=== PATIENT | male | born 1980 | race Two or more races ===

== ENCOUNTER → 2020-06-13 09:11 | Outpatient (BNVA) | payer OTHER, SELFPAY | PROVIDERS: PCP Nurse Practitioner Family; Referring Provider Nurse Practitioner Family; Visit Provider Internal Medicine Gastroenterology | DX: K76.0 Fatty (change of) liver, not elsewhere classified (principal); E66.01 Morbid (severe) obesity due to excess calories | CPT/HCPCS: 99213 ==

== ENCOUNTER 2020-06-18 09:08 | Outpatient (REF) | payer OTHER, SELFPAY ==
--- NOTE | 2020-06-18 09:25 | US_ITS ---
EXAMINATION: US COMPLETE ABDOMEN WITH LIVER ELASTOGRAPHY CLINICAL INFORMATION: Hepatic steatosis. COMPARISON: Abdominal ultrasound 09/21/2018, CT abdomen and pelvis 03/09/2017. TECHNIQUE: Real-time imaging of the abdominal viscera. Noninvasive ultrasound liver fibrosis assessment is performed using Jannie ElastPQ point quantification shear wave elastography (pSWE) with a 5 MHz transducer. Multiple elastography samples are obtained. FINDINGS: PANCREAS: The pancreas is normal in size and contour and echogenicity. There is no pancreatic ductal distention or retroperitoneal effusion. ABDOMINAL AORTA: The proximal, middle, and distal aortic segments are normal in caliber. INFERIOR VENA CAVA: Visualized portions are normal. LIVER: The liver is borderline enlarged. The liver surface is smooth. There is increased hepatic parenchymal echogenicity consistent with hepatic steatosis. Some minor focal sparing again noted adjacent to gallbladder similar to previous exam. There is no focal hepatic parenchymal lesion or intrahepatic ductal dilatation. The right lobe measures 19.6 cm in length. The left lobe measures 12.3 cm in length. Doppler shows portal flow towards the liver. Shear wave elastography provides a median stiffness of 1.16 m/s (reference: normal median stiffness is 0.81 - 1.22 m/s). The IQR/median stiffness to assess sampling precision is 0.24 (reference: optimal IQR/median stiffness is under 0.3). GALLBLADDER: Normal. The gallbladder is physiologically distended without evidence of stones, sludge, polyps, wall thickening or pericholecystic fluid. COMMON BILE DUCT: Normal in caliber measuring 0.4 cm in diameter. RIGHT KIDNEY: Normal. No hydronephrosis. No renal calculi. The kidney measures 11.8 cm in maximum dimension. There is a small cyst interpolar region measuring under 1 cm. LEFT KIDNEY: Normal. No hydronephrosis. No renal calculi. The kidney measures 11.3 cm in maximum dimension. There is a small cyst lower pole measuring under 1 cm. SPLEEN: Normal. The spleen measures 9.8 cm in maximum dimension. FREE FLUID: None. IMPRESSION: 1. Liver borderline enlarged 19.6 cm with smooth contour and increased echogenicity consistent with hepatic steatosis. No focal hepatic parenchymal lesion. 2. Elastography: Liver elastography measurements are within normal (METAVIR Stage F0). 3. No cholelithiasis or ductal dilatation. 4. Pancreas unremarkable.
== END 2020-06-18 09:09 | disposition home or self-care (01) ==
LOC: HO.US 09:08
PROVIDERS: Visit Provider Internal Medicine Gastroenterology
DX: K76.0 Fatty (change of) liver, not elsewhere classified (principal)
CPT/HCPCS: 76705; 76981

== ENCOUNTER → 2020-09-03 14:05 | Outpatient (BNVA) | payer OTHER, SELFPAY | PROVIDERS: PCP Nurse Practitioner Family; Visit Provider Internal Medicine Gastroenterology | DX: Z76.89 Persons encountering health services in other specified circumstances (principal) ==

== ENCOUNTER 2021-01-10 09:29 | Outpatient (REF) | payer OTHER, SELFPAY ==
[2021-01-10 11:26] LABS: MANUAL DIFF FLAG NO
[2021-01-10 11:37] LABS: Basophils Percent Auto 0.5 % (0-2); Eosinophils Absolute Auto 0.2 X10*3/uL (0.0-0.4); Eosinophils Percent Auto 2.8 % (0-4); Hematocrit 43.8 % (42-52); Hemoglobin 14.8 g/dl (14.0-18.0); Imm Gran Abs Auto 0.01 X10*3/uL (0.00-0.03); Imm Gran Pct Auto 0.2 % (0.0-0.4); Lymphocytes Absolute Auto 2.4 X10*3/uL (1.2-4.9); Lymphocytes Percent Auto 41.5 % (20-40); Mean Corpuscular HGB Conc 33.8 g/dl (31.0-36.0); Mean Corpuscular Hemoglobin 30.7 pg (27.0-33.0); Mean Corpuscular Volume 90.9 fL (80-98); Mean Platelet Volume 10.5 fL (9.4-12.4); Monocytes Absolute Auto 0.5 X10*3/uL (0.1-1.2); Monocytes Percent Auto 9.2 % (2-11); Neutrophils Absolute Auto 2.6 X10*3/uL (2.0-8.3); Neutrophils Percent Auto 45.8 % (45-73); Platelet Count 231 X10*3/uL (160-400); Red Blood Count 4.82 X10*6/uL (4.60-5.80); Red Cell Distribution Width 12.7 % (11.0-16.0); White Blood Count 5.7 X10*3/uL (4.8-10.8)
[2021-01-10 11:44] LABS: Prothrombin Time 12.1 SEC (10.8-13.0)
[2021-01-10 11:51] LABS: Alanine Aminotransferase 48 U/L (0-40); Albumin Level 4.5 g/dL (3.5-5.0); Alkaline Phosphatase 78 U/L (39-117); Anion Gap 10 (12-20); Aspartate Amino Transferase 34 U/L (5-37); Bilirubin Total 0.7 mg/dL (0.0-1.0); Blood Urea Nitrogen 14 mg/dL (9-16); Calcium 9.5 mg/dL (8.4-10.2); Carbon Dioxide 28 mmol/L (22-29); Chloride 104 mmol/L (96-108); Cholesterol 195 mg/dL; Estimated Average Glucose 114 mg/dL; Estimated Glomerular Filt Rate > 60; Gamma Glutamyl Transpeptidase 29 U/L (11-51); Glucose Fasting 90 mg/dL (60-99); HDL Cholesterol 37 mg/dL; Hemoglobin A1c % 5.6 %; LDL Cholesterol Calculated 127 mg/dl; Potassium 4.3 mmol/L (3.3-5.1); Sodium 138 mmol/L (135-145); Total Protein 7.3 g/dL (6.5-8.0); Triglycerides 158 mg/dL
[2021-01-10 12:22] LABS: Ferritin 196 ng/mL (20-250); TSH reflex Free T4 1.13 uIU/mL (0.32-4.0)
[2021-01-12 13:42] LABS: Transglutaminase IgA 1 U/mL
== END 2021-01-10 09:30 | disposition home or self-care (01) ==
LOC: HO.HMGCLDS 09:29
PROVIDERS: PCP Nurse Practitioner Family; Visit Provider Internal Medicine Gastroenterology
DX: K76.0 Fatty (change of) liver, not elsewhere classified (principal)
CPT/HCPCS: 36415; 80053; 80061; 82306; 82728; 82977; 83036; 83516; 84443; 85025; 85610

== ENCOUNTER 2021-06-03 10:39 | Outpatient (REF) | payer OTHER, SELFPAY ==
[2021-06-03 11:58] LABS: Appearance Urine CLEAR; Color Urine YELLOW; Glucose Urine UA NEG (NEG); Leukocyte Esterase Urine NEG (NEG); Nitrite Urine NEG (NEG); Specific Gravity - Urine 1.025 (1.005-1.025); UACC Culture Trigger NO; Urine Blood 1+ (NEG); Urine Ketones NEG (NEG); Urine Protein NEG (NEG-TRACE)
[2021-06-03 12:04] LABS: Anion Gap 11 (12-20); Blood Urea Nitrogen 12 mg/dL (9-16); Calcium 9.4 mg/dL (8.4-10.2); Carbon Dioxide 27 mmol/L (22-29); Chloride 104 mmol/L (96-108); Estimated Glomerular Filt Rate > 60; Phosphorus 3.7 mg/dL (2.7-4.5); Potassium 4.8 mmol/L (3.3-5.1); Sodium 137 mmol/L (135-145)
[2021-06-03 12:06] LABS: Mucus Urine TRACE /LPF; Renal Epithelial Cells Urine TRACE /LPF; Squamous Epithelial Cell Urine TRACE /LPF; WBC Urine 0 /HPF (0-4)
[2021-06-03 12:58] LABS: Creatinine Urine 166.73 mg/dL; Microalbum/Creatinine Ratio Ur 10.7 ug/mg cr
[2021-06-03 13:24] LABS: Renal w Reflex Lab Use Only Order verified
== END 2021-06-03 10:40 | disposition home or self-care (01) ==
LOC: HO.LAB 10:39
PROVIDERS: PCP Nurse Practitioner Family; Visit Provider Internal Medicine Nephrology
DX: R31.9 Hematuria, unspecified (principal); R80.9 Proteinuria, unspecified
CPT/HCPCS: 36415; 80051; 81001; 82043; 82310; 82565; 84100; 84520

== ENCOUNTER → 2021-06-11 11:44 | Outpatient (BNVA) | payer OTHER, SELFPAY | PROVIDERS: PCP Nurse Practitioner Family; Referring Provider Nurse Practitioner Family; Visit Provider Physician Assistant ==

== ENCOUNTER 2021-10-10 08:55 | Outpatient (REF) | payer OTHER, SELFPAY ==
--- NOTE | ~2021-10-10 | US_ITS ---
EXAMINATION: US ABDOMEN COMPLETE CLINICAL INFORMATION: Fatty change of liver, not elsewhere classified. COMPARISON: Ultrasound abdomen complete 06/18/2020 and 09/21/2018. CT abdomen and pelvis 03/09/2017. TECHNIQUE: Real-time imaging of the abdominal viscera. FINDINGS: PANCREAS: Normal ABDOMINAL AORTA: The proximal, mid, and distal segments are normal in caliber. INFERIOR VENA CAVA: Visualized portions are normal. LIVER: Liver echotexture is increased. There is a hypoechoic area in the periportal region and adjacent to the gallbladder, characteristic location of focal fatty sparing. Liver is enlarged slightly enlarged. The liver contour is normal. No focal hepatic lesion. There is no intrahepatic biliary duct dilatation seen. GALLBLADDER: Normal. The gallbladder is physiologically distended without evidence of stones, sludge, polyps, wall thickening or pericholecystic fluid. COMMON BILE DUCT: Normal in caliber measuring 0.3 cm in diameter. RIGHT KIDNEY: Normal No hydronephrosis or renal calculi. The kidney measures 13.0 cm in maximum dimension. LEFT KIDNEY: There is a 7 x 9 x 6 mm cyst exophytic to the lower pole. No hydronephrosis or renal calculi. The kidney measures 11.0 cm in maximum dimension. SPLEEN: Normal. The spleen measures 10.0 cm in maximum dimension. FREE FLUID: None. US/US abdomen complete IMPRESSION: Enlarged fatty liver. Small left renal cyst.
== END 2021-10-10 08:56 | disposition home or self-care (01) ==
LOC: HO.US 08:55
PROVIDERS: PCP Nurse Practitioner Family; Visit Provider Physician Assistant
DX: K76.0 Fatty (change of) liver, not elsewhere classified (principal)
CPT/HCPCS: 76700

== ENCOUNTER → 2021-10-22 08:58 | Outpatient (BNVA) | payer OTHER, SELFPAY | PROVIDERS: PCP Nurse Practitioner Family; Visit Provider Physician Assistant | DX: K76.0 Fatty (change of) liver, not elsewhere classified (principal); E66.01 Morbid (severe) obesity due to excess calories; Z68.38 Body mass index [BMI] 38.0-38.9, adult | CPT/HCPCS: 99212 ==

== ENCOUNTER 2021-10-22 09:46 | Outpatient (REF) | payer OTHER, SELFPAY ==
[2021-10-22 11:37] LABS: MANUAL DIFF FLAG NO
[2021-10-22 11:42] LABS: Basophils Percent Auto 0.7 % (0-2); Eosinophils Absolute Auto 0.1 X10*3/uL (0.0-0.4); Hematocrit 45.1 % (42.0-52.0); Hemoglobin 15.1 g/dl (14.0-18.0); Imm Gran Abs Auto 0.01 X10*3/uL (0.00-0.03); Imm Gran Pct Auto 0.2 % (0.0-0.4); Lymphocytes Absolute Auto 2.2 X10*3/uL (1.2-4.9); Lymphocytes Percent Auto 40.1 % (20-40); Mean Corpuscular HGB Conc 33.5 g/dl (31.0-36.0); Mean Corpuscular Hemoglobin 30.7 pg (27.0-33.0); Mean Corpuscular Volume 91.7 fL (80.0-98.0); Monocytes Absolute Auto 0.5 X10*3/uL (0.1-1.2); Monocytes Percent Auto 8.5 % (2-11); Neutrophils Absolute Auto 2.7 x10*3/uL (2.0-8.3); Neutrophils Percent Auto 48.5 % (45-73); Platelet Count 224 X10*3/uL (160-400); Red Blood Count 4.92 X10*6/uL (4.60-5.80); Red Cell Distribution Width 13.1 % (11.0-16.0); White Blood Count 5.5 X10*3/uL (4.8-10.8)
[2021-10-22 12:15] LABS: Alanine Aminotransferase 41 U/L (0-40); Albumin Level 4.3 g/dL (3.5-5.0); Alkaline Phosphatase 77 U/L (39-117); Anion Gap 12 (12-20); Aspartate Amino Transferase 29 U/L (5-37); Bilirubin Total 0.5 mg/dL (0.0-1.0); Blood Urea Nitrogen 17 mg/dL (9-16); Calcium 9.3 mg/dL (8.4-10.2); Carbon Dioxide 26 mmol/L (22-29); Chloride 104 mmol/L (96-108); Cholesterol 201 mg/dL; Estimated Glomerular Filt Rate > 60; Glucose Random 96 mg/dL (60-115); HDL Cholesterol 38 mg/dL; LDL Cholesterol Calculated 118 mg/dl; Potassium 4.6 mmol/L (3.3-5.1); Sodium 137 mmol/L (135-145); Total Protein 7.4 g/dL (6.5-8.0); Triglycerides 229 mg/dL
[2021-10-26 14:19] LABS: FIB-ALT 39 U/L (9-46); FIB-Alpha-2-Macroglobulin 148 mg/dL (106-279); FIB-Apolipoprotein A1 132 mg/dL (94-176); FIB-GGT 24 U/L (3-95); FIB-Haptoglobin 15 mg/dL (43-212); FIB-Total Bilirubin 0.4 mg/dL (0.2-1.2); Liver Fibrosis Score 0.28; Liver Fibrosis Stage F1; Nec Inflam Act Grade A0-A1; Nec Inflam Act Score 0.21
== END 2021-10-22 09:47 | disposition home or self-care (01) ==
LOC: HO.WFDLDS 09:46
PROVIDERS: Visit Provider Physician Assistant
DX: K76.0 Fatty (change of) liver, not elsewhere classified (principal); E66.01 Morbid (severe) obesity due to excess calories
CPT/HCPCS: 36415; 80053; 80061; 81596; 85025

== ENCOUNTER 2022-07-01 09:09 | Outpatient (REF) | payer OTHER, SELFPAY ==
[2022-07-01 10:42] LABS: Appearance Urine Clear; Color Urine Yellow; Glucose Urine UA Negative (Negative); Leukocyte Esterase Urine Negative (Negative); Nitrite Urine Negative (Negative); PH 5.5 (5.0-9.0); Specific Gravity - Urine 1.015 (1.005-1.025); UMIC TRIGGER UA YES; Urine Blood Small (1+) (Negative); Urine Ketones Negative (Negative); Urine Protein Negative (Neg-Trace)
[2022-07-01 10:43] LABS: Anion Gap 14 (12-20); Blood Urea Nitrogen 13 mg/dL (9-16); Calcium 9.2 mg/dL (8.4-10.2); Carbon Dioxide 24 mmol/L (22-29); Chloride 105 mmol/L (96-108); Estimated Glomerular Filt Rate > 60; Potassium 4.3 mmol/L (3.3-5.1); Sodium 139 mmol/L (135-145)
[2022-07-01 10:53] LABS: Bacteria Urine None Seen (None Seen); Hyaline Casts Urine 0-2 /LPF (0-2); RBC Urine 0-2 /HPF (0-2); Squamous Epithelial Cell Urine 0-2 /HPF (0-2); WBC Urine 0-5 /HPF (0-5)
[2022-07-01 11:05] LABS: Creatinine Urine 128.78 mg/dL; Total Protein Urine Random < 7 mg/dL (<12)
== END 2022-07-01 09:10 | disposition home or self-care (01) ==
LOC: HO.LAB 09:09
PROVIDERS: PCP Nurse Practitioner Family; Visit Provider Internal Medicine Nephrology
DX: R80.9 Proteinuria, unspecified (principal); R31.9 Hematuria, unspecified
CPT/HCPCS: 36415; 80051; 81001; 82310; 82565; 84156; 84520

== ENCOUNTER 2023-01-22 11:05 | Emergency (ER) | payer OTHER, SELFPAY ==
--- NOTE | ~2023-01-22 | US_ITS ---
EXAMINATION: US SCROTUM CLINICAL INFORMATION: Left testicular pain. COMPARISON: None available. TECHNIQUE: A sonogram of the scrotum was performed assessing hardy-scale appearance and color Doppler flow. Spectral Doppler analysis of the arterial and venous flow were performed in the testes bilaterally. FINDINGS: RIGHT: Right testicle measures 4.3 x 2.4 x 3.2 cm, volume 17.2 mL. No focal testicular parenchymal lesions are visualized. Spectral Doppler analysis of the arterial and venous flow is normal in the right testis. Incidental finding of right appendix testes. Right epididymal head is normal in size.. Small right hydrocele is noted. No varicocele is seen. Right epididymal Doppler flow is normal LEFT: Left testicle measures 4.0 x 2.7 x 3.1 cm, volume 17.7 mL. No focal testicular parenchymal lesions are visualized. Spectral Doppler analysis of the arterial and venous flow is normal in the left testis. Left epididymal head is enlarged in size. There is a small hydrocele. A prominent vessels consistent with varicocele. Left epididymal Doppler flow is increased. US/US scrotum IMPRESSION: 1. Suspect left epididymitis. 2. Bilateral small hydroceles. 3. Left varicocele.
--- NOTE | ~2023-01-22 | US_ITS ---
EXAMINATION: US SCROTUM CLINICAL INFORMATION: Left testicular pain. COMPARISON: None available. TECHNIQUE: A sonogram of the scrotum was performed assessing hardy-scale appearance and color Doppler flow. Spectral Doppler analysis of the arterial and venous flow were performed in the testes bilaterally. FINDINGS: RIGHT: Right testicle measures 4.3 x 2.4 x 3.2 cm, volume 17.2 mL. No focal testicular parenchymal lesions are visualized. Spectral Doppler analysis of the arterial and venous flow is normal in the right testis. Incidental finding of right appendix testes. Right epididymal head is normal in size.. Small right hydrocele is noted. No varicocele is seen. Right epididymal Doppler flow is normal LEFT: Left testicle measures 4.0 x 2.7 x 3.1 cm, volume 17.7 mL. No focal testicular parenchymal lesions are visualized. Spectral Doppler analysis of the arterial and venous flow is normal in the left testis. Left epididymal head is enlarged in size. There is a small hydrocele. A prominent vessels consistent with varicocele. Left epididymal Doppler flow is increased. US/US scrotum doppler IMPRESSION: 1. Suspect left epididymitis. 2. Bilateral small hydroceles. 3. Left varicocele.
[2023-01-22 11:12] VITALS: BP 135/87; PULSE 66; RESP 16; TEMP 36.6; O2SAT 97; BMI 39.5
--- NOTE | 2023-01-22 11:13 | ED.MALEGU ---
HPI - Male Genitourinary General Chief complaint: Urogenital-Male Stated complaint: Urinating blood Time Seen by Provider: 01/22/23 12:34 Source: patient Mode of arrival: ambulatory Limitations: no limitations History of Present Illness HPI Narrative: 42-year-old male presents with hematospermia. Symptoms started over the past 24 hours. Yesterday was judi blood. He also has some left-sided testicular pain. He has had this in the past. He does follow-up with the manager front office regarding hematuria microscopically. The pain that he has is [id number]. Does not radiate. Not associated with nausea vomiting. Denies any urinary frequency, dysuria, hematuria, penile discharge. There is no clear relieving or exacerbating features. Related Data Previous Rx's Medication Instructions Recorded cholecalciferol (vitamin D3) 1,250 50,000 unit PO QWEEK 90 days #12 01/22/21 mcg (50,000 unit) capsule caps sulfamethoxazole 800 1 tab PO BID #20 tabs 01/22/23 mg-trimethoprim 160 mg tablet (Bactrim DS) Allergies Allergy/AdvReac Type Severity Reaction Status Date / Time No Known Allergies Allergy Verified 10/22/21 09:00 [No Known Allergies*] [facility] Past Medical History Medical History Family history of polyps in the colon Hepatic steatosis Microhematuria Morbid obesity due to excess calories Surgical History H/O colonoscopy Family History Family History Father History of colonic polyps Mother History of nephrectomy Maternal Grandmother Hypertension Diabetes Social History Social History Household Members: Significant Other and Children Housing: House Alcohol intake: never Smoked in Last 30 Days: No Use of substances other than those prescribed or required for medical reasons: No Advance Directives: No Advance Directives Information Provided: No service: No Current occupational status: unemployed 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 Physical Exam Vital Signs: Vital Signs: Last Vital Signs Temp 97.7 F 01/22/23 12:11 Pulse 74 01/22/23 12:11 Resp 16 01/22/23 12:11 BP 117/81 05/25/23 12:11 Pulse Ox 95 01/22/23 12:11 O2 Del Method Room Air 01/22/23 12:11 BMI result Body Mass Index 39.5 GEN: Well developed, no acute distress, alert, oriented HEENT: Normocephalic, atraumatic, normal external ears, nose appears normal Eyes: Normal to appearance Neck: Supple, no lymphadenopathy Respiratory: Talks in complete sentences, no respiratory distress Extremities: No clubbing cyanosis or edema Neurologic: No focal neurologic deficits, cranial nerves 2-12 intact, gait normal Skin: No rash : Likely varicocele, tenderness over the left epididymis, normal cremasteric reflexes, no additional palpable masses. Course Course Course Narrative: This is a rapid medical exam. Deferred additional HPI, ROS, PE to primary provider. 42 yo male with history of microscopic hematuria (followed by renal) here with blood in urine, blood in semen, left testicular pain (intermittent) since Thursday. Unable to visualize in triage. Will check UA, CT NG, testicular US. VSS Reevaluation(s) Reevaluation #1: The workup is complete. Ultrasound identified a varicocele and epididymitis on the left side. There is no evidence of UTI. There was hematuria. At this point, I believe a referral to Urology and treatment for acute epididymitis. He was negative for GC and chlamydia. There does not appear to be a necessity to treat for an STD. Time: 14:05 Medical Decision Making Medical Decision Making [facility] Narrative: 42-year-old male presents with hematospermia. Symptoms have been intermittent issue, however, worse today than previous. Examination did reveal slight asymmetry which could be consistent with a varicocele and epididymal prominence and tenderness. There is no other abnormality of the external genitalia. Abdomen is soft nontender. Patient will need an ultrasound to rule out torsion, mass, etc.. Patient will need urinalysis, GC and chlamydia. Differential Diagnosis Differential Diagnoses: The differential diagnosis associated with the presentation includes (Epididymitis, orchitis, medicine for Denise, trauma, hematuria, cystitis) Lab Data [facility] Lab Attestation statement: I reviewed the patient's lab results. Labs: Lab Results 01/22/23 01/22/23 Range/Units 11:23 11:23 Urine Color Yellow Urine Appearance Clear Urine pH 6.0 (5.0-9.0) Ur Specific [place] 1.020 (1.005-1.025) Urine Protein Negative (Neg-Trace) mg/dL Urine Glucose (UA) Negative (Negative) mg/dL Urine Ketones Negative (Negative) mg/dL Urine Blood Moderate (2+) H (Negative) Urine Nitrite Negative (Negative) Ur Leukocyte Esterase Negative (Negative) Urine RBC 11-20 H (0-2) /HPF Urine WBC 0-5 (0-5) /HPF Ur Squamous Epith Cells 0-2 (0-2) /HPF Urine Bacteria None Seen (None Seen) Hyaline Casts 0-2 (0-2) /LPF Chlam trachomat DNA PCR NOT DETECTED (Not Detect.) N.gonorrhoeae DNA (PCR) NOT DETECTED (Not Detect.) Independent Interpretation I performed an independent interpretation of an: Ultrasound Interpretation: US/US scrotum doppler IMPRESSION: 1.? Suspect left epididymitis. 2.? Bilateral small hydroceles. 3.? Left varicocele. ? Dictated By: Eyad Biggs MD Signed By: <Electronically signed by Eyad Biggs MD in OV> 01/22/23 1221 Tests considered The following testing was considered but not selected: Renal ultrasound Prescription Management I considered prescription management with: Pain Medication and Antibiotic Discharge Plan Discharge Clinical Impression: Epididymitis, Varicocele, Hematospermia Patient Disposition: Home, Self-Care Instructions: Epididymitis (ED), Varicocele (ED) Prescriptions: New sulfamethoxazole-trimethoprim [Bactrim DS] 800-160 mg tablet 1 tab PO BID Qty: 20 0RF No Action cholecalciferol (vitamin D3) 1,250 mcg (50,000 unit) capsule 50,000 unit PO QWEEK 90 Days Qty: 12 0RF Rx Instructions: Y Referrals: Ramon Turner MD [Physician] - 10 days
[2023-01-22 11:33] LABS: Appearance Urine Clear; Color Urine Yellow; Glucose Urine UA Negative (Negative); Leukocyte Esterase Urine Negative (Negative); Nitrite Urine Negative (Negative); UMIC TRIGGER UACC YES; Urine Blood Moderate (2+) (Negative); Urine Ketones Negative (Negative); Urine Protein Negative (Neg-Trace)
[2023-01-22 11:35] LABS: Bacteria Urine None Seen (None Seen); Hyaline Casts Urine 0-2 /LPF (0-2); Squamous Epithelial Cell Urine 0-2 /HPF (0-2); WBC Urine 0-5 /HPF (0-5)
[2023-01-22 12:11] VITALS: BP 117/81; PULSE 74; RESP 16; TEMP 36.5; O2SAT 95
--- NOTE | 2023-01-22 12:19 | PC.NURSE ---
pt a&ox4, vss, presents to ED for intermittent left testicle discomfort /swelling/redness since Thursday, reports discomfort radiating to left groin, hx of kidney problems with blood in urine, followed by [facility]. denies any trauma to the area/new sexual partners. 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 pt pending u/s results and ED provider.
[2023-01-22 13:17] LABS: CT PCR NOT DETECTED (Not Detect.); NG PCR NOT DETECTED (Not Detect.)
== END 2023-01-22 14:23 | disposition home or self-care (01) ==
PROVIDERS: Nurse Practitioner Family; Emergency Provider Emergency Medicine; PCP Nurse Practitioner Family
DX: R31.9 Hematuria, unspecified (principal); N45.1 Epididymitis; I86.1 Scrotal varices; R36.1 Hematospermia; N50.812 Left testicular pain; N50.811 Right testicular pain; Z79.899 Other long term (current) drug therapy
CPT/HCPCS: 0353U; 76870; 81001; 93975; 99284

== ENCOUNTER → 2023-02-24 10:04 | Outpatient (BNVA) | payer OTHER, SELFPAY | PROVIDERS: PCP Nurse Practitioner Family; Visit Provider Nurse Practitioner Family | DX: R31.29 Other microscopic hematuria (principal); N45.1 Epididymitis; R36.1 Hematospermia | CPT/HCPCS: 99202 ==

== ENCOUNTER 2023-03-27 15:49 | Outpatient (REF) | payer OTHER, SELFPAY ==
[2023-03-27 19:12] LABS: Urine Cytology See Pathology rpt
== END 2023-03-27 15:50 | disposition home or self-care (01) ==
LOC: HO.LNP 15:49
PROVIDERS: PCP Nurse Practitioner Family; Visit Provider Nurse Practitioner Family
DX: R31.29 Other microscopic hematuria (principal); N28.1 Cyst of kidney, acquired
CPT/HCPCS: 88112; 99212

== ENCOUNTER 2023-03-27 15:49 | Outpatient (AMB) | payer OTHER, SELFPAY ==
--- NOTE | 2023-03-27 15:49 | A.OFFVIS_ITS ---
Intake Intake Visit Reasons: UTI- follow up Intake Note: Patient presents for follow up L. Varicocele/bi hydrocele/epididymitis Urology Medications: previously treated with doxycycline/none Blood Thinner: none Finance Director Required: No Accompanied by: Self / Same As Patient Allergies No Known Allergies [No Known Allergies*] Allergy (Verified 04/01/23 06:27) Medication List - Last Reconciled 04/01/23 by SATISH Canseco No Known Home Meds HPI HPI Comments History of Present Illness Details Vladislav is a very pleasant 42-year-old male patient of Dr. Kasper. He presents to the office today for follow-up. Of note, patient was seen approximately 1 month ago as a new patient for epididymitis and hematospermia at which time he was treated with 2 weeks of doxycycline. In discussion with the patient today he reports to be doing and feeling much better and has since completed antibiotic therapy. In office urinalysis results reviewed with the patient today. Discussed at length potential causes for microscopic hematuria as well as further microscopic hematuria workup versus surveillance monitoring. Discussed further microscopic hematuria workup with in office cystoscopy, imaging, and cytology. Patient denies any known chemical exposure or smoking history. Patient discusses previously following up with Nephrology for longstanding history of renal cyst however has not followed up since [facility]. Discussed at length importance of following up as recommended and suggested. He otherwise denies any urinary issues or concerns at this time. When asked he denies urinary urgency, urinary frequency, incontinence, nocturia, hematuria, dysuria, foul smelling urine, changes to urinary stream, flank pain, fever, and or chills. He is happy with his current voiding parameters. 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 Review of Systems Const All systems reviewed & are unremarkable except as noted in HPI and below Reports no additional complaints Eyes Reports no additional complaints ENT Reports no additional complaints Card Reports no additional complaints Resp Reports no additional complaints GI Reports no additional complaints Reports as per HPI Musc Reports no additional complaints Neuro Reports no additional complaints Psych Reports no additional complaints Endo Reports no additional complaints Roger/Lymph Reports no additional complaints Aller/Immun Reports no additional complaints Physical Exam Const General: cooperative, healthy appearing, comfortable, no acute distress, well developed, alert and awake Orientation/consciousness: patient oriented x3 Limitations: no limitations HEENT Head: Yes normal to inspection, Yes normocephalic and Yes atraumatic Ears: hearing grossly normal bilaterally Eyes General: appearance normal, both eyes and all related structures Neck Neck: Yes normal visual inspection and Yes trachea midline Chest Chest palpation & inspection: normal inspection of the chest Resp Effort & Inspection: normal respiratory effort and able to speak in complete sentences Cardio Rate: regular rate GI Inspection: Yes normal to inspection General: Yes no CVA tenderness Male General Exam: Yes normal external exam Penis: normal penis Meatus: meatus normal Scrotum: scrotum normal and Varicocele present Testes: Testes normal Back/Spine/Pelvis Back: no CVA tenderness Skin General skin exam: no rashes or lesions noted Neuro General: patient oriented x3 Extrem General: Yes normal to inspection Psych Appearance: grossly normal and well kempt Mental Status: mental status grossly normal Speech and movement: Normal speech and movement present and Clear speech present Affect: normal affect Attitude: cooperative Thought process: Normal thought process present Thought content: Normal thought content present Insight: Good insight present (Psych) Judgement: Good judgement present (Psych) Results AMB Urinalysis, Automated UA Leukoctes 0 Larry/uL Last Edit by [employer] on 03/27/23 16:16 UA Nitrite Last Edit by [employer] on 03/27/23 16:16 UA Urobilinogen 0.2 mg/dL Last Edit by [employer] Nolipreet[employer] on 03/27/23 16:16 UA Protein 15 mg/dL Last Edit by [employer] on 03/27/23 16:16 UA pH 6.0 Last Edit by [employer] Nolipreet[employer] on 03/27/23 16:16 UA Blood 200 Arturo/uL Last Edit by Gely Dillonpreeti on 03/27/23 16:16 UA Specific [place] 1.030 Last Edit by Gely Wilmapreeti on 03/27/23 16:16 UA Ketone Last Edit by Reymundosamuel Dillonpreeti on 03/27/23 16:16 UA Bilirubin 0 mg/dL Last Edit by Gely Wilmapreeti on 03/27/23 16:16 UA Glucose 0 mg/dL Last Edit by Gely Gonzalez on 03/27/23 16:16 Results Reviewed Results Reviewed: Laboratory Last Values Urine pH (Auto) 6.0 03/27/23 16:15 Specific [place] (Auto) 1.030 03/27/23 16:15 Urine Protein (Auto) 15 mg/dL 03/27/23 16:15 Glucose (UA)(Auto) 0 mg/dL 03/27/23 16:15 Urine Blood (Auto) 200 Arturo/uL 03/27/23 16:15 Urine Bilirubin (Auto) 0 mg/dL 03/27/23 16:15 Urine Urobilinogen (Auto) 0.2 mg/dL 03/27/23 16:15 Leukocyte Esterase (Auto) 0 Larry/uL 03/27/23 16:15 Assessment & Plan Assessment & Plan (1) Renal cyst: Code(s): N28.1 - Cyst of kidney, acquired (2) Microhematuria: Code(s): R31.29 - Other microscopic hematuria Plan In office urinalysis results reviewed with the patient today; as noted above; will send for urine cytology Discussed at length potential causes for microscopic hematuria Discussed further microscopic hematuria workup with in office cystoscopy, cytology, and imaging for further assessment and evaluation. Will obtain retroperitoneal ultrasound for further assessment evaluation Patient declines an office cystoscopy at this time Discussed at length importance of following up with providers as recommended Discussed, educated, encouraged to continue drinking plenty of water daily. Follow-up in 1 year; if not sooner with any issues, concerns, and or questions Orders: Orders US retroperitoneal comp 03/27/23 N28.1 - Cyst of kidney, acquired, R31.29 - Other microscopic hematuria Urine Cytology 03/27/23 R31.29 - Other microscopic hematuria AMB Urinalysis Automated 03/27/23 Z13.9 - Encounter for screening, unspecified Patient Instructions: The patient had an opportunity to ask questions regarding the treatment plan. All questions were answered. Physical exam, labs, and imaging were discussed and reviewed in detail. As well as risks, benefits, and discussion of treatment choices. No major barriers to understanding were identified. The patient expressed understanding and agreement with the above treatment plan. The patient was made aware they should contact our office by phone for worsening of their current condition, the appearance of new symptoms, or with any questions or concerns. Compliance is encouraged with any medications and follow up testing that is ordered. It is a privilege to be allowed the opportunity to participate in? your urological care.? Again, if you have any questions or concerns If you have any questions or concerns please do not hesitate to contact me. The office is [phone]. This note is constructed using voice recognition software. While every effort has been made to ensure accuracy floor scraper errors may have been included. Yours sincerely, SATISH Canseco Coding Level of Care Code Est Pt Level 3 (03115) Diagnoses Renal cyst N28.1 Microhematuria R31.29
== END 2023-03-27 16:24 | disposition home or self-care (01) ==
PROVIDERS: PCP Nurse Practitioner Family; Visit Provider Nurse Practitioner Family
DX: N28.1 Cyst of kidney, acquired (principal); R31.29 Other microscopic hematuria
CPT/HCPCS: 99213

== ENCOUNTER 2024-03-21 10:27 | Outpatient (REF) | payer OTHER, SELFPAY ==
--- NOTE | ~2024-03-21 | US_ITS ---
EXAMINATION: US RETROPERITONEAL COMPLETE (RENAL) CLINICAL INFORMATION: Other microscopic hematuria. COMPARISON: Ultrasound abdomen complete 10/10/2021. Ultrasound abdomen complete with liver elastography 06/18/2020. CT abdomen and pelvis 03/09/2017. TECHNIQUE: Real-time imaging of the kidneys and bladder. FINDINGS: RIGHT KIDNEY: 12.4 x 4.7 x 6.3 cm (SAG x AP x TRV). The kidney is normal in size, contour, and echogenicity. Renal cortical thickness is normal. No calculi or focal parenchymal lesions. No hydronephrosis. LEFT KIDNEY: 12.2 x 5.5 x 5.4 cm (SAG x AP x TRV). The kidney is normal in size, contour, and echogenicity. Renal cortical thickness is normal. No renal calculi or hydronephrosis. Lower pole simple renal cyst measures 0.9 x 0.9 x 0.9 cm. BLADDER: Well distended and normal. Bilateral ureteral jets are demonstrated. Prevoid bladder volume is 226 mL. Postvoid bladder volume is 17 mL. ADDITIONAL FINDINGS: Well-circumscribed hypoechoic area within the prostate with posterior shadowing likely represents a small cyst versus necrotic nodule. US/US retroperitoneal comp IMPRESSION: Prostatic necrotic nodule versus cyst measuring up to 0.9 cm.
== END 2024-03-21 10:28 | disposition home or self-care (01) ==
LOC: HO.HMGCX 10:27
PROVIDERS: PCP Nurse Practitioner Family; Visit Provider Nurse Practitioner Family
DX: R31.29 Other microscopic hematuria (principal); N28.1 Cyst of kidney, acquired
CPT/HCPCS: 76770

== ENCOUNTER 2024-03-24 12:44 | Outpatient (AMB) | payer OTHER, SELFPAY ==
--- NOTE | 2024-03-24 13:38 | MHC.PC.OV ---
Vital Signs 03/24/24 13:39 Height 5 ft 8 in Weight 263 lb BMI 40.0 BP 120/90 H Blood Pressure Location Rt brachial Position Sitting Pulse 60 Pulse Source Pulse Oximeter Pulse Oximetry (%) 98 Oxygen Delivery Method Room Air Intake Visit Reasons: Annual PE PER AG Intake Note: Patient here for physical exam. Allergies No Known Allergies [No Known Allergies*] Allergy (Verified 03/24/24 13:40) Medication List - Last Reconciled 03/24/24 by SATISH Smith No Known Home Meds Tobacco use date assessed: 03/24/24 Dental Screening Dental Screen Date: 03/24/24 Did you have a dental visit in the last 12 months?: Yes Did you have a dental problem in the last 6 months where you did not have access to dental care?: No Was dental information given to patient?: Patient has dentist HPI Annual PE PER HPI Details Pt is here for a PE. Will order labs. Pt's blood pressure is elevated today. Will have pt monitor his blood pressure at home and drop off readings. 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 91448 - PHQ-9 Billing: Patient declined-do not bill Source: Developed by Drs. Robin Erickson, Farrah Quintana, Nilesh Carreno and colleagues, with an educational lissette from [employer]. AUDIT C Alcohol Use Questionnaire (AUDIT-C) 1. How often do you have a drink containing alcohol?: Never Total Score: 0 NANCY-7 AMB Questionnaire NANCY-7 Date NANCY - 7 assessed: 03/24/24 Source: Developed by Drs. Robin Erickson, Farrah Quintana, Nilesh Carreno and colleagues, with an educational lissette from [employer]. NANCY-7 Assessment Billing NANCY-7 Assessment Tool: NANCY-7 Assessment 20891 Review of Systems Const Denies chills and Denies fever(s) Eyes Denies blurry vision ENT Denies vertigo, Denies dizziness and Denies sore throat Card Denies chest pain at rest, Denies chest pain with activity, Denies diaphoresis, Denies dyspnea and Denies dyspnea on exertion Resp Denies cough, Denies dyspnea, Denies dyspnea on exertion and Denies wheezing GI Denies abdominal pain, Denies melena, Denies hematochezia, Denies constipation, Denies diarrhea and Denies loose stools Denies hematuria Musc Denies numbness and Denies tingling Skin/Breast Denies lesions Neuro Denies vertigo, Denies dizziness, Denies numbness and Denies tingling Psych Denies anxiety, Denies depression, Denies homicidal ideation, Denies suicidal ideation and Denies other (substance abuse) Aller/Immun Denies wheezing Physical exam (Primary Care) Vital Signs: Last Vital Signs Pulse 60 03/24/24 13:39 BP 120/90 H 03/24/24 13:39 Pulse Ox 98 03/24/24 13:39 Oxygen Delivery Method Room Air 03/24/24 13:39 BMI result Body Mass Index 40.0 Tobacco/Smoking Status: Tobacco use Status Tobacco use date assessed 03/24/24 03/24/24 13:41 Patient Tobacco Use Status Never used Tobacco 03/24/24 13:41 e-Cigarette/Vaping Use Never Used 03/24/24 13:41 Const General: cooperative Nutritional Appearance: obese Orientation/consciousness: patient oriented x3 HENMT Head: Yes normal to inspection, Yes normocephalic and Yes atraumatic Ears: TM's normal bilaterally Eyes General: appearance normal, both eyes and all related structures Alignment and Position: alignment normal and position normal Neck Neck: Yes normal visual inspection and Yes no lymphadenopathy Thyroid: Thyroid normal Resp Effort & Inspection: normal respiratory effort Auscultation: clear to auscultation bilaterally Cardio Rate: regular rate Rhythm: regular rhythm Heart sounds: S1 normal heart sound present, S2 normal heart sound present and no murmurs GI Palpation (GI): Soft to palpation and nontender Auscultation: normal bowel sounds Male General Exam: Yes normal external exam Penis: normal penis Scrotum: scrotum normal, testes descended bilaterally and no inguinal hernias Testes: no testicular mass Skin Rashes: no rashes Neuro General: patient oriented x3, moves all extremities, no focal motor deficits and deep tendon reflexes 2+ bilaterally Romberg Test: Negative Psych Appearance: grossly normal Mental Status: mental status grossly normal Speech and movement: Normal speech and movement present Affect: normal affect Attitude: cooperative Thought process: Normal thought process present Thought content: Normal thought content present Insight: Good insight present (Psych) Judgement: Good judgement present (Psych) Assessment and Plan Assessment & Plan (1) Physical exam: Code(s): Z00.00 - Encounter for general adult medical examination without abnormal findings Plan: Labs ordered (2) Elevated blood pressure reading: Code(s): R03.0 - Elevated blood-pressure reading, without diagnosis of hypertension Plan: 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 Scribed for BRANDY HsiehP- by Nilam Roche medical transcriptionist, on 03/24/2024 at 13:45 EST. Orders: Orders Comprehensive [place]. Panel Fast Today Z00.00 - Encounter for general adult medical examination without abnormal findings UA CC w/rflx Micro + Cult Today Z00.00 - Encounter for general adult medical examination without abnormal findings Complete Blood Count Auto Diff Today Z00.00 - Encounter for general adult medical examination without abnormal findings TSH reflex Free T4 Today Z00.00 - Encounter for general adult medical examination without abnormal findings Lipid Panel Today Z00.00 - Encounter for general adult medical examination without abnormal findings Coding Level of Care Code Est Pt Prev Care 40-64y(37406) Diagnoses Physical exam Z00.00 Elevated blood pressure reading R03.0 Additional Codes NANCY-7 Assessment Billing - NANCY-7 Assessment Tool: NANCY-7 Assessment 47685 ([id number])
[2024-03-24 13:39] VITALS: BP 120/90; PULSE 60; O2SAT 98; BMI 40.0
== END 2024-03-24 14:12 | disposition home or self-care (01) ==
PROVIDERS: PCP Nurse Practitioner Family; Visit Provider Nurse Practitioner Family
DX: Z00.00 Encounter for general adult medical examination without abnormal findings (principal); R03.0 Elevated blood-pressure reading, without diagnosis of hypertension
CPT/HCPCS: 99396

== ENCOUNTER 2024-03-28 08:36 | Outpatient (REF) | payer OTHER, SELFPAY ==
[2024-03-28 10:01] LABS: MANUAL DIFF FLAG NO
[2024-03-28 10:39] LABS: Basophils Percent Auto 0.7 % (0-2); Eosinophils Absolute Auto 0.2 X10*3/uL (0.0-0.4); Eosinophils Percent Auto 2.8 % (0-4); Hematocrit 44.9 % (42.0-52.0); Imm Gran Abs Auto 0.03 X10*3/uL (0.00-0.03); Imm Gran Pct Auto 0.5 % (0.0-0.4); Lymphocytes Absolute Auto 2.6 X10*3/uL (1.2-4.9); Lymphocytes Percent Auto 42.8 % (20-40); Mean Corpuscular HGB Conc 33.4 g/dl (31.0-36.0); Mean Corpuscular Hemoglobin 30.6 pg (27.0-33.0); Mean Corpuscular Volume 91.6 fL (80.0-98.0); Mean Platelet Volume 9.8 fL (9.4-12.4); Monocytes Absolute Auto 0.5 X10*3/uL (0.1-1.2); Monocytes Percent Auto 8.7 % (2-11); Neutrophils Absolute Auto 2.7 x10*3/uL (2.0-8.3); Neutrophils Percent Auto 44.5 % (45-73); Platelet Count 206 X10*3/uL (160-400); White Blood Count 6.1 X10*3/uL (4.8-10.8)
[2024-03-28 10:47] LABS: Appearance Urine Clear; Color Urine Yellow; Glucose Urine UA Negative (Negative); Leukocyte Esterase Urine Negative (Negative); Nitrite Urine Negative (Negative); PH 5.5 (5.0-9.0); Specific Gravity - Urine 1.025 (1.005-1.025); UMIC TRIGGER UACC YES; Urine Blood Small (1+) (Negative); Urine Ketones Negative (Negative); Urine Protein Negative (Neg-Trace)
[2024-03-28 11:01] LABS: Bacteria Urine None Seen (None Seen); Hyaline Casts Urine 0-2 /LPF (0-2); RBC Urine 0-2 /HPF (0-2); Squamous Epithelial Cell Urine 0-2 /HPF (0-2); WBC Urine 0-5 /HPF (0-5)
[2024-03-28 11:33] LABS: Alanine Aminotransferase 37 U/L (0-40); Albumin Level 4.3 g/dL (3.5-5.0); Alkaline Phosphatase 78 U/L (39-117); Anion Gap 10 (12-20); Aspartate Amino Transferase 28 U/L (5-37); Bilirubin Total 0.3 mg/dL (0.0-1.0); Blood Urea Nitrogen 17 mg/dL (9-16); Calcium 9.3 mg/dL (8.4-10.2); Carbon Dioxide 26 mmol/L (22-29); Chloride 107 mmol/L (96-108); Cholesterol 191 mg/dL (<200); Estimated Glomerular Filt Rate > 60; Glucose Fasting 94 mg/dL (60-99); HDL Cholesterol 40 mg/dL (>40); LDL Cholesterol Calculated 107 mg/dL (<100); Potassium 4.2 mmol/L (3.3-5.1); Sodium 139 mmol/L (135-145); TSH reflex Free T4 1.55 uIU/mL (0.32-4.0); Total Protein 7.2 g/dL (6.5-8.0); Triglycerides 222 mg/dL (<150)
[2024-03-28 14:42] LABS: Urine Cytology See Pathology rpt
== END 2024-03-28 08:37 | disposition home or self-care (01) ==
LOC: HO.LAB 08:36
PROVIDERS: Absent Provider Nurse Practitioner Family; PCP Nurse Practitioner Family; Visit Provider Nurse Practitioner Family
DX: Z00.00 Encounter for general adult medical examination without abnormal findings (principal); N28.1 Cyst of kidney, acquired; R31.29 Other microscopic hematuria
CPT/HCPCS: 36415; 80053; 80061; 81001; 81003; 84443; 85025; 88112; 99212

== ENCOUNTER 2024-03-28 08:36 | Outpatient (AMB) | payer OTHER, SELFPAY ==
--- NOTE | 2024-03-28 08:50 | MHC.OFFVIS ---
Intake Visit Reasons: 1y/US(pending 03/21) Intake Note: Patient presents today for follow up on: L. 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 Kasper who was accompanied by his son at today's office visit. He has a past medical history of hepatic stenosis, renal cysts, and microscopic hematuria. He presents to the office today for follow-up of his persistent microscopic hematuria. In discussion with the patient today reports to be doing and feeling well. He reports since his last office visit here approximately 1 year ago he has had no urological issues or concerns. Recent retroperitoneal imaging results reviewed with the patient today. Being bilateral kidneys with no hydronephrosis or renal calculi. Lower left pole renal cyst measuring approximately 0.9 cm. The bladder is well distended and normal. Bladder jets are demonstrated. Pre void bladder volume is approximately 230 mL. Postvoid volume is approximately 20 mL. Well-circumscribed hypoechoic area within the prostate with posterior shadowing likely represents a small cyst versusnecrotic nodule. In office urinalysis results reviewed with the patient today 3+ microscopic hematuria. Discussed at length potential causes of microscopic hematuria as well as further workup. I discussed reasons for blood in the urine may include but are not limited to kidney stones, cancer in the urinary tract, BPH, kidney stone disease or inflammatory conditions of the urinary tract. I have discussed workup to include cystoscopy evaluation. When asked he denies any previous smoking and or workplace chemical exposure. He discusses previously following up with Dr. Joyce and undergoing in office cystoscopy a few years ago and being told everything was within normal limits. He reports following up with Nephrology will in the past past however has since lost his follow-up and would like to establish care. He otherwise denies any urinary issues or concerns at this time. When asked he denies urinary urgency, urinary frequency, incontinence, nocturia, hematuria, dysuria, foul smelling urine, changes to urinary stream, flank pain, fever, and or chills. He is happy with his current voiding parameters. Urine cytology 03/22 Urine: Negative for high-grade urothelial carcinoma. 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 Cognitive needs: No Hearing needs: No Vision needs: No Review of Systems Const All systems reviewed & are unremarkable except as noted in HPI and below Physical Exam Const General: cooperative, healthy appearing, comfortable, no acute distress, well developed, alert and awake Nutritional Appearance: overweight Orientation/consciousness: patient oriented x3 Limitations: no limitations HEENT Head: Yes normal to inspection, Yes normocephalic and Yes atraumatic Ears: hearing grossly normal bilaterally Eyes General: appearance normal, both eyes and all related structures Neck Neck: Yes normal visual inspection and Yes trachea midline Chest Chest palpation & inspection: normal inspection of the chest Resp Effort & Inspection: normal respiratory effort and able to speak in complete sentences Cardio Rate: regular rate GI Inspection: Yes normal to inspection General: Yes no CVA tenderness Male General Exam: Yes normal external exam Penis: normal penis Meatus: meatus normal Scrotum: scrotum normal and Varicocele present Testes: Testes normal Back/Spine/Pelvis Back: no CVA tenderness Skin General skin exam: no rashes or lesions noted Neuro General: patient oriented x3 Extrem General: Yes normal to inspection Psych Appearance: grossly normal and well kempt Mental Status: mental status grossly normal Speech and movement: Normal speech and movement present and Clear speech present Affect: normal affect Attitude: cooperative Thought process: Normal thought process present Thought content: Normal thought content present Insight: Fair insight present (Psych) Judgement: Fair judgement present (Psych) Results AMB Urinalysis, Automated UA Leukoctes 0 Larry/uL Last Edit by Gely Gonzalez on 03/28/24 09:01 UA Nitrite Negative Last Edit by Gely Gonzalez on 03/28/24 09:01 UA Urobilinogen 0.2 mg/dL Last Edit by Gely Gonzalez on 03/28/24 09:01 UA Protein 0 mg/dL Last Edit by Gely Gonzalez on 03/28/24 09:01 UA pH 5.5 Last Edit by Gely Gonzalez on 03/28/24 09:01 UA Blood 200 Arturo/uL Last Edit by Gely Gonzalez on 03/28/24 09:01 UA Specific [place] 1.030 Last Edit by Gely Gonzalez on 03/28/24 09:01 UA Ketone Negative Last Edit by Gely Gonzalez on 03/28/24 09:01 UA Bilirubin 0 mg/dL Last Edit by Gely Gonzalez on 03/28/24 09:01 UA Glucose 0 mg/dL Last Edit by Gely Gonzalez on 03/28/24 09:01 Results Reviewed Results Reviewed: Laboratory Last Values Urine pH (Auto) 5.5 03/28/24 09:00 Specific [place] (Auto) 1.030 03/28/24 09:00 Urine Protein (Auto) 0 mg/dL 03/28/24 09:00 Glucose (UA)(Auto) 0 mg/dL 03/28/24 09:00 Urine Ketones (Auto) Negative 03/28/24 09:00 Urine Blood (Auto) 200 Arturo/uL 03/28/24 09:00 Urine Nitrite (Auto) Negative 03/28/24 09:00 Urine Bilirubin (Auto) 0 mg/dL 03/28/24 09:00 Urine Urobilinogen (Auto) 0.2 mg/dL 03/28/24 09:00 Leukocyte Esterase (Auto) 0 Larry/uL 03/28/24 09:00 Date of Service: 03/21/24 EXAMINATION: US RETROPERITONEAL COMPLETE (RENAL) FINDINGS: RIGHT KIDNEY: 12.4 x 4.7 x 6.3 cm (SAG x AP x TRV). The kidney is normal in size, contour, and echogenicity. Renal cortical thickness is normal. No calculi or focal parenchymal lesions. No hydronephrosis. LEFT KIDNEY: 12.2 x 5.5 x 5.4 cm (SAG x AP x TRV). The kidney is normal in size, contour, and echogenicity. Renal cortical thickness is normal. No renal calculi or hydronephrosis. Lower pole simple renal cyst measures 0.9 x 0.9 x 0.9 cm. BLADDER: Well distended and normal. Bilateral ureteral jets are demonstrated. Prevoid bladder volume is 226 mL. Postvoid bladder volume is 17 mL. ADDITIONAL FINDINGS: Well-circumscribed hypoechoic area within the prostate with posterior shadowing likely represents a small cyst versus necrotic nodule. IMPRESSION: Prostatic necrotic nodule versus cyst measuring up to 0.9 cm. Assessment & Plan Assessment & Plan (1) Renal cyst: Code(s): N28.1 - Cyst of kidney, acquired Category: Medical (2) Microhematuria: Code(s): R31.29 - Other microscopic hematuria Category: Medical Plan In office urinalysis results reviewed with the patient today; as noted above; will send for urine cytology. Patient currently denies any bothersome urinary issues. He reports be happy with current voiding parameters. Recent retroperitoneal ultrasound results reviewed with the patient today; as noted above. Discussed at length potential causes of microscopic hematuria; discussed further workup versus surveillance monitoring; risks and benefits of these interventions were discussed. Follow-up in office cystoscopy; or sooner with any issues, concerns, and or questions. Orders: Orders Urine Cytology 03/28/24 R31.29 - Other microscopic hematuria AMB Urinalysis Automated 03/28/24 Z13.9 - Encounter for screening, unspecified Referrals Nephrology Referral N28.1 - Cyst of kidney, acquired Patient Instructions: The patient had an opportunity to ask questions regarding the treatment plan. All questions were answered. Physical exam, labs, and imaging were discussed and reviewed in detail. As well as risks, benefits, and discussion of treatment choices. No major barriers to understanding were identified. The patient expressed understanding and agreement with the above treatment plan. The patient was made aware they should contact our office by phone for worsening of their current condition, the appearance of new symptoms, or with any questions or concerns. Compliance is encouraged with any medications and follow up testing that is ordered. It is a privilege to be allowed the opportunity to participate in? your urological care.? Again, if you have any questions or concerns If you have any questions or concerns please do not hesitate to contact me. The office is [phone]. This note is constructed using voice recognition software. While every effort has been made to ensure accuracy strike warfare/missile systems officer errors may have been included. Yours sincerely, SATISH Canseco Coding Level of Care Code Est Pt Level 3 (84187) Diagnoses Renal cyst N28.1 Microhematuria R31.29
== END 2024-03-28 09:50 | disposition home or self-care (01) ==
PROVIDERS: PCP Nurse Practitioner Family; Visit Provider Nurse Practitioner Family
DX: N28.1 Cyst of kidney, acquired (principal); R31.29 Other microscopic hematuria
CPT/HCPCS: 99213

== ENCOUNTER 2024-03-28 09:41 | Outpatient (REF) | payer OTHER, SELFPAY | END 2024-03-28 09:42 | disposition home or self-care (01) | LOC: HO.LNP 09:41 | PROVIDERS: Visit Provider Nurse Practitioner Family | DX: Z13.89 Encounter for screening for other disorder (principal) ==

== ENCOUNTER 2024-04-05 11:35 | Outpatient (AMB) | payer OTHER, SELFPAY ==
--- NOTE | 2024-04-05 11:47 | HO.NEPHOV ---
Vital Signs 04/05/24 11:48 Height 5 ft 8 in Weight 265 lb 6 oz BMI 40.3 BP 112/74 Blood Pressure Location Lt brachial Position Sitting Pulse 75 Pulse Source Pulse Oximeter Pulse Oximetry (%) 97 Oxygen Delivery Method Room Air Intake Visit Reasons: Cyst of kidney, acquired/ Conf Supervisor Type Bar And Segment Required: No Accompanied by: Self / Same As Patient Allergies No Known Allergies [No Known Allergies*] Allergy (Verified 04/05/24 11:51) HPI Comments Details: I had the pleasure of seeing Vladislav in consultation for microscopic hematuria and renal cyst. He had seen Urology and had undergone investigations. He does not have any proteinuria or renal dysfunction. He has no sensory neural deficits. He has no family history of microscopic hematuria or proteinuria. His blood pressure has been at goal. He denies any family history of microscopic hematuria or renal dysfunction or renal transplantation. There is no family history of any Alport syndrome. Workup had shown him to have a renal cyst. He has no flank pain, weight loss, night sweats. He has no history of any renal calculus. He denies chest pain, shortness of breath, epistaxis, hematemesis, melena, photosensitivity, skin rashes, joint swellings or pedal edema. He is not on any anticoagulation. He does not take aspirin or any nonsteroidal anti-inflammatories. 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 He does not have any muscle pain and has no history of any drug use. He feels well. 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 Cognitive needs: No Hearing needs: No Vision needs: No Review of Systems Const All systems reviewed & are unremarkable except as noted in HPI and below Physical Exam Vital Signs: Last Vital Signs Pulse 75 04/05/24 11:48 BP 112/74 04/05/24 11:48 Pulse Ox 97 04/05/24 11:48 Oxygen Delivery Method Room Air 04/05/24 11:48 BMI result Body Mass Index 40.3 Const General: comfortable and no acute distress Orientation/consciousness: patient oriented x3 HEENT Head: Yes normocephalic Mouth: Normal oral and palatal mucosa present Eyes EOM: EOMs intact bilaterally Neck Neck: Yes supple Resp Auscultation: clear to auscultation bilaterally Cardio Jugular venous distension: no JVD Rate: regular rate GI Palpation (GI): Soft to palpation Auscultation: normal bowel sounds General: Yes no CVA tenderness Back/Spine/Pelvis Back: no CVA tenderness Skin General skin exam: no rashes or lesions noted Neuro General: patient oriented x3 and moves all extremities Extrem General: Yes no pedal edema Results Reviewed Nephrology Results: Hgb 15.0 g/dl (14.0-18.0) 03/28/24 WBC 6.1 X10*3/uL (4.8-10.8) 03/28/24 Plt Count 206 X10*3/uL (160-400) 03/28/24 Sodium 139 mmol/L (135-145) 03/28/24 Potassium 4.2 mmol/L (3.3-5.1) 03/28/24 Chloride 107 mmol/L (96-108) 03/28/24 Carbon Dioxide 26 mmol/L (22-29) 03/28/24 BUN 17 mg/dL (9-16) H 03/28/24 Creatinine 1.04 mg/dL (0.5-1.4) 03/28/24 Calcium 9.3 mg/dL (8.4-10.2) 03/28/24 Urine Protein Negative mg/dL (Neg-Trace) 03/28/24 Urine Creatinine 128.78 mg/dL 07/01/22 Assessment & Plan Assessment & Plan (1) Microhematuria: Code(s): R31.29 - Other microscopic hematuria Category: Medical (2) Renal cyst: Code(s): N28.1 - Cyst of kidney, acquired Category: Medical Plan Vladislav has microscopic hematuria without any proteinuria, renal dysfunction or hypertension. He had seen Urology and had undergone investigations which were unrevealing. He has no family history of Alport syndrome. He has a renal cyst which I will do a follow-up ultrasound with time. He never had infection of the cyst, cyst rupture or bleeding into the cyst. His urine output is good. His blood pressure has been stable. He is not on any anticoagulation. He has no history of renal calculus. At this moment, there are no concerns about his microscopic hematuria. 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 There is no reason to suspect any IgA nephropathy or Alport syndrome. He will benefit from weight loss. I have ordered urinalysis, urine protein creatinine ratio and renal functions along with electrolytes before he follows up with me in a year's time. I shall be happy to see him anytime before and if there is any need. Answered all questions. Follow-up appointment given. Orders: Orders Electrolytes 04/05/24 N28.1 - Cyst of kidney, acquired, R31.29 - Other microscopic hematuria UA and rflx microscopic 04/05/24 N28.1 - Cyst of kidney, acquired, R31.29 - Other microscopic hematuria Creatinine 04/05/24 N28.1 - Cyst of kidney, acquired, R31.29 - Other microscopic hematuria Blood Urea Nitrogen 04/05/24 N28.1 - Cyst of kidney, acquired, R31.29 - Other microscopic hematuria Protein Creatinine Ratio, Ur 04/05/24 N28.1 - Cyst of kidney, acquired, R31.29 - Other microscopic hematuria Coding Level of Care Code New Pt Level 4 (26064) Diagnoses Microhematuria R31.29 Renal cyst N28.1
[2024-04-05 11:48] VITALS: BP 112/74; PULSE 75; O2SAT 97; BMI 40.3
== END 2024-04-05 12:14 | disposition home or self-care (01) ==
PROVIDERS: PCP Nurse Practitioner Family; Referring Provider Nurse Practitioner Family; Visit Provider Internal Medicine Nephrology
DX: R31.29 Other microscopic hematuria (principal); N28.1 Cyst of kidney, acquired
CPT/HCPCS: 99204

== ENCOUNTER → 2024-04-05 11:35 | Outpatient (BNVA) | payer OTHER, SELFPAY | PROVIDERS: PCP Nurse Practitioner Family; Referring Provider Nurse Practitioner Family; Visit Provider Internal Medicine Nephrology | DX: R31.29 Other microscopic hematuria (principal); N28.1 Cyst of kidney, acquired | CPT/HCPCS: 99202 ==

== ENCOUNTER 2024-04-29 09:54 | Outpatient (AMB) | payer OTHER, SELFPAY ==
--- NOTE | 2024-04-29 10:11 | MHC.OFFVIS ---
Intake Visit Reasons: cysto Intake Note: Patient is Present for Cystoscopy/Microhematuria (Last visit was with Chelsey) Urology Med: None Antibiotic Allergy: None Blood Thinner: None URO- G Disposable Cystoscope lot: [id number] exp:12/09/2026 Cosmetology Educator Required: No Accompanied by: Self / Same As Patient Allergies No Known Allergies [No Known Allergies*] Allergy (Verified 04/29/24 10:24) HPI Comments Details: Vladislav is a pleasant male. He is a patient of Dr. Crouch. He is seen for the following urologic conditions - assessment microscopic hematuria - requires yearly DOT clearance Bladder clear Was enlarged Did discuss timed voiding 12 month follow-up UA Microscopic hematuria Prior evaluation Imaging - 03/23 renal ultrasound benign cyst Has had prior cystoscopy 2021- Denies smoking or were placed chemical exposures Cytology 03/22 NAD, 03/23 NAD Has completed Nephrology appointment No clear medical reason for microscopic hematuria PFSH Medical History Family history of polyps in the colon Morbid obesity due to excess calories Hepatic steatosis Microhematuria Surgical History H/O colonoscopy Family History Father History of colonic polyps Mother History of nephrectomy Maternal Grandmother Hypertension Diabetes Social History Household Members: Significant Other and Children Housing: House Alcohol intake: never Patient Tobacco Use Status: Never used Tobacco e-Cigarette/Vaping Use: Never Used service: No Current occupational status: unemployed 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 Information consent for procedure given to the patient. Discussed technical aspects, risks, benefits and alternatives in full. Addressed all of the patient's questions and concerns regarding the procedure. The patient demonstrated knowledge and understanding. They wish to proceed with this procedure. Preparation The patient was prepped in the usual manner. A prototype engineer manager was present and in the room. Genitalia was prepped with betadine solution in a sterile manner. Lidocaine Jelly 2% was placed into the urethra and 16Fr flexible Olympus cystoscope was inserted into the meatus after adequate lubrication. Procedure Cystoscopy performed using a disposable Urovue digital 16 Nepalese cystoscope. Meatus uncircumcised Urethra anterior and posterior urethra normal Prostatic Urethra unremarkable slight neovascularity Bladder examination with retroflexion of cystoscope Bladder Orifices normal shape and position Bladder Capacity large Trabeculations grade 1 Cellule Formation - Diverticulum Formation - Mucosal Erythema - Bladder Tumor - 44940-[id number] DISPOSABLE SCOPE URO-G FLEXIBLE SCOPE Procedure code (CPT) selection complete Office Meds lidocaine HCl 2 % mucosal jelly in applicator Performing Provider: Ramon Turner MD [place] [facility] [facility] Administered by: Tesfaye Franco LPN on 04/29/24 10:38 Dose Route Admin Location Dispensed Lot Number Expiration Date [facility] Station Installation Supervisor 10 mL intra-urethral 10 mL nitrofurantoin monohydrate/macrocrystals 100 mg capsule Performing Provider: Ramon Turner MD [place] [facility] [facility] Administered by: Tesfaye Franco LPN on 04/29/24 10:38 Dose Route Admin Location Dispensed Lot Number Expiration Date [place] Station Installation Supervisor 100 mg PO 1 cap naproxen 500 mg tablet Performing Provider: Ramon Turner MD [place] [facility] [place] [facility] Administered by: Tesfaye Franco LPN on 04/29/24 10:38 Dose Route Admin Location Dispensed Lot Number Expiration Date [place] Station Installation Supervisor 500 mg PO 1 tab Results AMB Urinalysis, Automated UA Leukoctes 0 Larry/uL Last Edit by MERCEDES Shah on 04/29/24 10:35 UA Nitrite Negative Last Edit by MERCEDES Shah on 04/29/24 10:35 UA Urobilinogen 0.2 mg/dL Last Edit by MERCEDES Shah on 04/29/24 10:35 UA Protein 0 mg/dL Last Edit by MERCEDES Shah on 04/29/24 10:35 UA pH 8.0 Last Edit by MERCEDES Shah on 04/29/24 10:35 UA Blood 25 Arturo/uL Last Edit by MERCEDES Shah on 04/29/24 10:35 UA Specific [place] 1.015 Last Edit by MERCEDES Shah on 04/29/24 10:35 UA Ketone Negative Last Edit by Sangeeta Matson, RMA on 04/29/24 10:35 UA Bilirubin 0 mg/dL Last Edit by Sangeeta Matson, RMA on 04/29/24 10:35 UA Glucose 0 mg/dL Last Edit by Sangeeta Matson, RMA on 04/29/24 10:35 Results Reviewed Results Reviewed: Laboratory Last Values Urine pH (Auto) 8.0 04/29/24 10:24 Specific [place] (Auto) 1.015 04/29/24 10:24 Urine Protein (Auto) 0 mg/dL 04/29/24 10:24 Glucose (UA)(Auto) 0 mg/dL 04/29/24 10:24 Urine Ketones (Auto) Negative 04/29/24 10:24 Urine Blood (Auto) 25 Arturo/uL 04/29/24 10:24 Urine Nitrite (Auto) Negative 04/29/24 10:24 Urine Bilirubin (Auto) 0 mg/dL 04/29/24 10:24 Urine Urobilinogen (Auto) 0.2 mg/dL 04/29/24 10:24 Leukocyte Esterase (Auto) 0 Larry/uL 04/29/24 10:24 Assessment & Plan Assessment & Plan (1) Microhematuria: Code(s): R31.29 - Other microscopic hematuria Category: Medical Plan No medical course for microscopic hematuria Orders: Orders AMB Urinalysis Automated Today Z13.9 - Encounter for screening, unspecified AMB Cystoscopy Today R31.29 - Other microscopic hematuria Patient Instructions: Imaging studies, laboratory and physical exam results were discussed and reviewed in detail. No major barriers to patient understanding were identified. An opportunity to ask questions regarding the treatment plan was provided. All questions were answered. The patient expressed understanding and agreement with the above treatment plan. The patient is aware they should contact our office by phone for worsening of their current condition or the appearance of new urologic symptoms. Compliance is encouraged with any medications and followup testing that is ordered. It is a privilege to participate in the urologic care of your patient. If you have any questions or concerns regarding treatment for the above conditions, or other urologic issues, please do not hesitate to contact me. The office telephone contact is [phone]. This note is constructed using voice recognition software. While every effort has been made to ensure accuracy commercial construction superintendent errors may have been included. Yours sincerely, Dr Ramon Turner MD, [facility] - Urology Providers of Expert, Compassionate Care for the Genitourinary System Coding Level of Care Code Est Pt Level 3 (12510) Diagnoses Microhematuria R31.29 CPT Codes Cystoscopy - CPT: 86440-[id number] ([id number])
== END 2024-04-29 10:59 | disposition home or self-care (01) ==
PROVIDERS: PCP Nurse Practitioner Family; Visit Provider Urology
DX: R31.29 Other microscopic hematuria (principal); Z13.9 Encounter for screening, unspecified
CPT/HCPCS: 52000; 99213

== ENCOUNTER → 2024-04-29 09:54 | Outpatient (BNVA) | payer OTHER, SELFPAY | PROVIDERS: PCP Nurse Practitioner Family; Visit Provider Urology | DX: R31.29 Other microscopic hematuria (principal) | CPT/HCPCS: 52000; 81003; 99212 ==

== ENCOUNTER 2024-06-20 11:16 | Emergency (ER) | payer OTHER, SELFPAY ==
[2024-06-20 11:26] VITALS: BP 131/82; PULSE 68; RESP 16; O2SAT 98; BMI 39.5
--- NOTE | 2024-06-20 11:30 | ED_ITS ---
HPI - General Adult General Chief complaint: Eye Problems Stated complaint: R eye injury Time Seen by Provider: 06/20/24 13:23 Source: patient Mode of arrival: ambulatory Limitations: no limitations History of Present Illness ED Provider: gadiel PIPER narrative: Patient is a 43-year-old male presenting to emergency department with complaint of injury to right eye which occurred prior to arrival. 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 Denies any changes in vision, blurred vision or double vision. Denies severe pain. Reports area has increased in swelling since the incident occurred. Unknown last tetanus. Does not wear contacts or glasses. MD complaint: eye injury Onset (ago): hour(s) Location: eyes Associated symptoms: denies other symptoms Treatments prior to arrival: none Related Data Previous Rx's ?Medication ?Instructions ?Recorded erythromycin 5 mg/gram (0.5 %) eye 0.5 inch ophthalmic (eye) BID #3.5 06/20/24 ointment grams Allergies Allergy/AdvReac Type Severity Reaction Status Date / Time No Known Allergies Allergy Verified 06/20/24 11:30 [No Known Allergies*] Review of Systems Review of Systems: As per HPI Yes all other systems are reviewed and are negative Constitutional: Constitutional: Reports as per HPI PMFSH Past Medical History Medical History Family history of polyps in the colon Morbid obesity due to excess calories Hepatic steatosis Microhematuria Surgical History H/O colonoscopy Family History Family History Father History of colonic polyps Mother History of nephrectomy Maternal Grandmother Hypertension Diabetes Social History Social History Household Members: Significant Other and Children Housing: House Alcohol intake: never Patient Tobacco Use Status: Never used Tobacco e-Cigarette/Vaping Use: Never Used Advance Directives: No Advance Directives Information Provided: Yes Do you have a plan to hurt others: No Plan service: No Current occupational status: unemployed 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 Blood pressure normal. Heart rate normal. Respiratory rate normal. Temperature normal. Oxygen saturation normal. Const General: cooperative, healthy appearing and no acute distress Orientation/consciousness: oriented to person, oriented to place, oriented to time and patient oriented x3 Limitations: no limitations HENMT Head: Yes normocephalic and Yes atraumatic Ears: external ears normal General nose exam: Normal external nose present Face and sinus: Yes face symmetric Mouth: oropharynx normal and moist mucous membranes Throat: Yes uvula midline Eyes Visual Valle: normal visual valle by confrontation Alignment and Position: alignment normal and position normal Eyelids: Yes eyelid abnormality (right upper eyelid swelling, ecchymosis, 5mm superficial abrasion) Conjunctivae: conjunctivae normal Sclerae: sclerae normal Corneas: corneas normal and fluorescein used Pupils: Equal, round and reactive pupils present EOM: EOMs intact bilaterally Direct Ophthalmoscopy: normal light reflex and no photophobia Neck Neck: Yes normal visual inspection and Yes supple Resp Effort & Inspection: normal respiratory effort and able to speak in complete sentences Auscultation: clear to auscultation bilaterally Cardio Rate: regular rate Rhythm: regular rhythm Heart sounds: S1 normal heart sound present and S2 normal heart sound present Skin General skin exam: elasticity normal and turgor normal Neuro General: oriented to person, oriented to place, oriented to time, patient oriented x3, moves all extremities, no focal motor deficits and CN's II-XI intact bilaterally Cranial nerves: Yes Equal, round and reactive pupils present Cognition (Neuro): normal cognition Extrem General: Yes full ROM, Yes no pedal edema and Yes no calf tenderness Psych Mental Status: mental status grossly normal Affect: normal affect Thought process: Normal thought process present Course Course Course Narrative: RME performed by Gisela Gaffney PA-C. Patient is a 43 year old assigned male at presenting to the emergency department with right eye lid / eye pain. Patient states that he was using a ratchet wrench when it broke off and hit him in the right eye lid / eye. Patient states that he did not lose consciousness. Patient states that his last tetanus shot was >10 years ago. Detailed physical exam and review of systems are deferred to the quickbooks bookkeeper. Patient placed back in the waiting room pending room availability. Medications Administered Discontinued Medications Generic Name Dose Route Start Last Admin Trade Name Roxane PRN Reason Stop Dose Admin Diphtheria/Tetanus/Acell Pertussis 0.5 ml 06/20/24 11:31 06/20/24 13:26 Diphth,Pertus(Acell),Tet Adult 0.5 Ml Syringe IM 06/20/24 11:32 0.5 ml .ONCE ONE Administration Fluorescein Sodium 1 strip 06/20/24 11:31 06/20/24 13:41 Fluorescein Sodium Strip EYE-RIGHT 06/20/24 11:32 1 strip ONCE ONE Administration Tetracaine HCl 1 drop 06/20/24 11:31 06/20/24 13:41 Tetracaine Hcl/Pf 0.5% Oph Juany 4 Ml Drops EYE-RIGHT 06/20/24 11:32 1 drop ONCE ONE Administration Medical Decision Making Medical Decision Making [facility] Narrative: Patient is a 43-year-old male presenting to emergency department with complaint of injury to right eye which occurred prior to arrival. On exam patient is awake, A+Ox3, VS WNL, afebrile, normal neurological exam without focal deficits, physical exam findings as above. Given reported symptoms and physical exam findings, initial differential includes eyelid abrasion, corneal abrasion or foreign body. Do not suspect globe rupture. No abrasion or foreign body noted on Wood's lamp exam with fluorescein stain. Advised patient to apply cool compresses, will send prescription for erythromycin ointment to apply to upper eyelid abrasion. Follow up with PCP or ping pong table assembler. Return precautions discussed at bedside. Patient verbalized understanding of and agreement with plan. Differential Diagnosis Differential Diagnoses: The differential diagnosis associated with the presentation includes As per [facility] External Record Review External record reviewed: Inpatient record, Office record and Outpatient record Prescription Management I considered prescription management with: Antibiotic Discharge Plan Discharge Clinical Impression: Abrasion of eyelid, right Qualifiers: Encounter type: initial encounter Qualified Code(s): S00.211A - Abrasion of right eyelid and periocular area, initial encounter Patient Disposition: Home, Self-Care Instructions: Abrasion (ED) Additional Instructions: You were evaluated in the emergency department today following an eye injury. Your evaluation did not show evidence of conditions requiring emergent medical t reatment at this time. You are being prescribed an antibiotic ointment to apply as prescribed. We also recommend that you apply cool compresses for 10-15 minutes at a time several times daily. Return to the emergency department if you develop new redness, swelling, thick yellow drainage, fevers, changes in vision or any other concerning symptoms. Follow-up with your primary care provider or ping pong table assembler as needed. Prescriptions: New erythromycin 5 mg/gram (0.5 %) ointment 0.5 inch ophthalmic (eye) BID Qty: 3.5 0RF Rx Instructions: Apply to right upper eyelid Referrals: Damian Chaudhry [Physician] - Stand Alone Forms: Work/School Release Print Language: Setswana
[2024-06-20] MEDS: Diphth,Pertus(ACell),Tet Adult 0.5 ML SYRINGE IM (13:26)
[2024-06-20] MEDS: Tetracaine HCl/PF 0.5% Oph Sol 4 ML DROPS 1 DROP EYE-RIGHT (13:41)
[2024-06-20] MEDS: Fluorescein Sodium STRIP 1 STRIP EYE-RIGHT (13:41)
[2024-06-20 14:38] VITALS: BP 131/82; PULSE 68; RESP 16; TEMP 37.1; O2SAT 98
== END 2024-06-20 14:40 | disposition home or self-care (01) ==
PROVIDERS: Emergency Provider Emergency Medicine; PCP Nurse Practitioner Family
DX: S00.211A Abrasion of right eyelid and periocular area, initial encounter (principal); W22.8XXA Striking against or struck by other objects, initial encounter; Y93.89 Activity, other specified; Y92.9 Unspecified place or not applicable; Y99.9 Unspecified external cause status; Z23 Encounter for immunization
CPT/HCPCS: 90471; 90715; 99282; 99284

== ENCOUNTER 2025-04-18 10:31 | Outpatient (REF) | payer OTHER, SELFPAY ==
[2025-04-18 13:20] LABS: Appearance Urine Turbid; Glucose Urine UA Negative (Negative); PH 5.5 (5.0-9.0); Specific Gravity - Urine 1.025 (1.005-1.025); UMIC TRIGGER UA YES
[2025-04-18 13:31] LABS: Anion Gap 12 (12-20); Blood Urea Nitrogen 13 mg/dL (9-16); Carbon Dioxide 25 mmol/L (22-29); Chloride 105 mmol/L (96-108); Estimated Glomerular Filt Rate > 60; Potassium 4.1 mmol/L (3.3-5.1); Sodium 138 mmol/L (135-145)
[2025-04-18 13:54] LABS: Protein/Creatinine Ratio, Ur 0.05 (<0.2); Total Protein Urine Random 16 mg/dL (<12)
== END 2025-04-18 10:32 | disposition home or self-care (01) ==
LOC: HO.HKASLDS 10:31
PROVIDERS: PCP Nurse Practitioner Family; Visit Provider Internal Medicine Nephrology
DX: R31.29 Other microscopic hematuria (principal); N28.1 Cyst of kidney, acquired
CPT/HCPCS: 36415; 80051; 81001; 82565; 82570; 84156; 84520; 99212

== ENCOUNTER 2025-04-18 10:31 | Outpatient (AMB) | payer OTHER, SELFPAY ==
--- NOTE | 2025-04-18 10:34 | HO.NEPHOV_ITS ---
Vital Signs 04/18/25 10:44 Height 5 ft 8 in Weight 264 lb 2 oz BMI 40.2 BP 114/80 Blood Pressure Location Lt brachial Position Sitting Pulse 70 Pulse Source Pulse Oximeter Pulse Oximetry (%) 96 Oxygen Delivery Method Room Air Intake Visit Reasons: Microhematuria-Conf Auricular Detoxification Specialist Required: No Accompanied by: Self / Same As Patient Allergies No Known Allergies (No Known Allergies*) Allergy (Verified 04/18/25 10:44) HPI Comments Details: I had the pleasure of seeing Vladislav in follow up for microscopic hematuria and renal cyst. He had seen Urology and had undergone investigations. He does not have any proteinuria or renal dysfunction. He has no sensory neural deficits. He has no family history of microscopic hematuria or proteinuria. His blood pressure has been at goal. He denies any family history of microscopic hematuria or renal dysfunction or renal transplantation. There is no family history of any Alport syndrome. Workup had shown him to have a renal cyst. He has no flank pain, weight loss, night sweats. He has no history of any renal calculus. He denies chest pain, shortness of breath, epistaxis, hematemesis, melena, photosensitivity, skin rashes, joint swellings or pedal edema. He is not on any anticoagulation. He does not take aspirin or any nonsteroidal anti- inflammatories. 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 He does not have any muscle pain and has no history of any drug use. He feels well. 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 Cognitive needs: No Hearing needs: No Vision needs: No Review of Systems Const All systems reviewed & are unremarkable except as noted in HPI and below Physical Exam Const General: comfortable and no acute distress Orientation/consciousness: patient oriented x3 HEENT Head: Yes normocephalic Mouth: Normal oral and palatal mucosa present Eyes EOM: EOMs intact bilaterally Neck Neck: Yes supple Resp Auscultation: clear to auscultation bilaterally Cardio Jugular venous distension: no JVD Rate: regular rate GI Palpation (GI): Soft to palpation Auscultation: normal bowel sounds General: Yes no CVA tenderness Back/Spine/Pelvis Back: no CVA tenderness Skin General skin exam: no rashes or lesions noted Neuro General: patient oriented x3 and moves all extremities Extrem General: Yes no pedal edema Assessment & Plan Assessment & Plan (1) Renal cyst: Code(s): N28.1 - Cyst of kidney, acquired Category: Medical (2) Microhematuria: Code(s): R31.29 - Other microscopic hematuria Category: Medical Plan Vladislav has microscopic hematuria without any proteinuria, renal dysfunction or hypertension. He had seen Urology and had undergone investigations which were unrevealing. He has no family history of Alport syndrome. He has a renal cyst for which I ordered a follow-up ultrasound. He never had infection of the cyst, cyst rupture or bleeding into the cyst. His urine output is good. His blood pressure has been stable. He is not on any anticoagulation. He has no history of renal calculus. At this moment, there are no concerns about his microscopic hematuria. 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 There is no reason to suspect any IgA nephropathy or Alport syndrome. He will benefit from weight loss. I have ordered urinalysis, urine protein creatinine ratio and renal functions along with electrolytes and a renal USS. Answered all questions. Orders: Orders Protein Creatinine Ratio, Ur Today N28.1 - Cyst of kidney, acquired, R31.29 - Other microscopic hematuria Creatinine Today N28.1 - Cyst of kidney, acquired, R31.29 - Other microscopic hematuria Electrolytes Today N28.1 - Cyst of kidney, acquired, R31.29 - Other microscopic hematuria Electrolytes 1 Year N28.1 - Cyst of kidney, acquired, R31.29 - Other microscopic hematuria Creatinine 1 Year N28.1 - Cyst of kidney, acquired, R31.29 - Other microscopic hematuria UA and rflx microscopic 1 Year N28.1 - Cyst of kidney, acquired, R31.29 - Other microscopic hematuria Protein Creatinine Ratio, Ur 1 Year N28.1 - Cyst of kidney, acquired, R31.29 - Other microscopic hematuria UA and rflx microscopic Today N28.1 - Cyst of kidney, acquired, R31.29 - Other microscopic hematuria Blood Urea Nitrogen Today N28.1 - Cyst of kidney, acquired, R31.29 - Other microscopic hematuria US renal BI 1 Month N28.1 - Cyst of kidney, acquired Blood Urea Nitrogen 1 Year N28.1 - Cyst of kidney, acquired, R31.29 - Other microscopic hematuria Coding Level of Care Code Est Pt Level 4 (50711) Diagnoses Renal cyst N28.1 Microhematuria R31.29
[2025-04-18 10:44] VITALS: BP 114/80; PULSE 70; O2SAT 96; BMI 40.2
--- OUTSIDE RECORDS SUMMARY | 2025-04-18 11:56 | XMS_ITS | Clinical Summary ---
Author Organization [employer] Address [address] [place] [address] Care Team Providers Care Digital Marketing Project Manager Name Role Phone Unavailable Primary Care Provider Unavailabl e Allergies No known active allergies Medications acetaminophen (Tylenol 8 Hour) 650 MG ER tablet Take 650 mg by mouth every 8 (eight) hours if needed for moderate pain. Do not crush, chew, or split. 08/16/2022 Active Active Problems No known active problems Social History Tobacco Use Types Packs/Day Years Used Date Smoking Tobacco: Never Smokeless Tobacco: Never Tobacco Cessation:Counseling Given: Not Answered Alcohol Use Standard Drinks/Week Comments Never 0 (1 standard drink = 0.6 oz pur e alcohol) Sex and Gender Information Value Date Recorded Sex Assigned at Male 06/30/2022 10:16 AM EDT Legal Sex Male 10:16 AM EDT Gender Identity Male 06/30/2022 10:16 AM EDT Sexual Orientation Straight 06/30/2022 10 :16 AM EDT Last Filed Vital Signs Vital Sign Reading Time Taken Comments Blood Pressure 104/62 04/21/2023 9:02 AM EDT Pulse 65 04/21/2023 9:02 AM EDT Temperature - - Respiratory Rate - - Oxygen Saturation - - Inhaled Oxygen Concentration - - Weight - - Height - - Body Mass Index - - Plan of Treatment Health Maintenance Due Date Last Done Comments Depression Screening 1981 HIV Screening 1981 Lipid Panel 1981 SDOH Screening 1981 Disability Screening 1981 Alcohol/Substance Use Screening 1993 Family Planning (PISQ) 1996 HPV Vaccines (1 - Male 3-dos e series) 1996 Hepatitis C Screening 1999 Hepatitis B Vaccines (3 of 3 - 3-dose series) 10/02/1999 08/07/1999, 07/24/1997 Dental Oral Exam 10/23/2023 04/21/2023, 04/03/2022 Dental Prophylaxis 10/23/2023 04/21/2023, 04/03/2022 Tobacco Screening 04/21/2024 04/21/2023 Dental X-Ray: Bitewings 04/22/2024 04/21/20 23, 08/18/2022 COVID-19 Vaccine (4 - 2023-2 5 season) 2024 10/10/2021, 11/25/2020, 11/04/2020 Influenza Vaccine (#1) 2025 DTaP/Tdap/Td Vaccines (2 - T d or Tdap) 08/31/2025 08/31/2015 Dental X-Ray: Full Mouth 04/22/2026 023, 07/18/2019 Zoster Vaccines (1 of 2) 2031 RSV Patients and Patients Aged 60 years or older (1 - 1-dose 75+ series) 2056 HIB Vaccines Aged Out No longer eligi ble based on patient's age to complete this topic Hepatitis A Vaccines Aged Out No long er eligible based on patient's age to complete this topic IPV Vaccines Aged Out No longer eligi ble based on patient's age to complete this topic Meningococcal B Vaccine Aged Out No l onger eligible based on patient's age to complete this topic Meningococcal Vaccine Aged Out No kristal cuca eligible based on patient's age to complete this topic Pneumococcal Vaccine: Pediatrics (0 to 5 Years) and At-Risk Patients (6 to 49) Years Aged Out No longer eligible b ased on patient's age to complete this topic RSV under 20 months Aged Out No longe r eligible based on patient's age to complete this topic Rotavirus Vaccines Aged Out No longer eligible based on patient's age to complete this topic Procedures Procedure Name Priority Date/Time Associated Diagnosis Comments PROPHYLAXIS - ADULT Routine 04/21/2023 9 :00 AM EDT PANORAMIC RADIOGRAPHIC IMAGE Routine 04/21/2023 9:00 AM EDT BITEWINGS - 4 RADIOGRAPHIC IMAGES Routine 04/21/2023 9:00 AM EDT PERIODIC ORAL EVALUATION - ESTABLISHED PATIENT Routine 04/21/2023 9:00 AM EDT from Last 3 Months or Most Recently Relevant to Health Maintenance Insurance DENTAL - [facility] PARTIAL (MEDICAID)
--- OUTSIDE RECORDS SUMMARY | 2025-04-18 11:56 | XMS_ITS | Clinical Summary ---
Author Organization [facility] Address [address] [place] [address] Phone Care Team Providers Care Card Filer Name Role Phone Jc Kasper NP Primary Care Provider [phone] Allergies No known active allergies Medications No known medications Active Problems Problem Noted Date Diagnosed Date Blood in urine 06/06/2021 Proteinuria 06/06/2021 Family History Medical History Relation Comments Hypertension Father Kidney disease Mother Relation Status Comments Father Alive Mother Alive Social History Tobacco Use Types Packs/Day Years Used Date Smoking Tobacco: Never Smokeless Tobacco: Never Tobacco Cessation:Counseling Given: No Alcohol Use Standard Drinks/Week Comments No 0 (1 standard drink = 0.6 oz pur e alcohol) Sex and Gender Information Value Date Recorded Sex Assigned at Not on file Legal Sex Male 4:51 PM EST Gender Identity Not on file Sexual Orientation Not on file Last Filed Vital Signs Vital Sign Reading Time Taken Comments Blood Pressure 130/80 06/07/2021 4:09 PM EDT Pulse 73 06/07/2021 4:09 PM EDT Temperature - - Respiratory Rate - - Oxygen Saturation 94% 06/07/2021 4:09 PM EDT Inhaled Oxygen Concentration - - Weight 122 kg (269 lb 12.8 oz) 06/07/2021 4:09 P M EDT Height 172.7 cm (5' 8 ) 06/07/2021 4:09 PM EDT Body Mass Index 41.02 06/07/2021 4:09 PM EDT Plan of Treatment Health Maintenance Due Date Last Done Comments Hepatitis B Vaccine (1 of 3 - 19+ 3-dose series) 08/24 Pneumococcal Vaccine: Peds ( 0 to 5 Years) and At-Risk Patients (6 to 49 Years) (1 of 2 - PCV) 2000 Influenza Vaccine (#1) 2025 Insurance [facility] Medicaid Care Teams Card Filer Relationship Specialty Start Date End Date Jc Kasper NP [address] [place] [address] PCP - General 09/10/20
== END 2025-04-18 11:08 | disposition home or self-care (01) ==
LOC: HO.HKAS 10:31
PROVIDERS: PCP Nurse Practitioner Family; Visit Provider Internal Medicine Nephrology
DX: N28.1 Cyst of kidney, acquired (principal); R31.29 Other microscopic hematuria
CPT/HCPCS: 99214

== ENCOUNTER 2025-04-24 07:58 | Outpatient (AMB) | payer OTHER, SELFPAY ==
--- OUTSIDE RECORDS SUMMARY | 2025-04-24 08:00 | XMS_ITS | Clinical Summary ---
Author Organization [facility] Address [address] [place] [address] Phone Care Team Providers Care Buffing And Polishing Wheel Repairer Name Role Phone Jc Kasper NP Primary Care Provider [phone] Allergies No known active allergies Medications No [...] PCV) 2000 Influenza Vaccine (#1) 2025 Insurance [facility] Medicaid Care Teams Buffing And Polishing Wheel Repairer Relationship Specialty Start Date End Date Jc Kasper NP [address] [place] [address] PCP - General 09/10/20
--- OUTSIDE RECORDS SUMMARY | 2025-04-24 08:00 | XMS_ITS | Clinical Summary ---
Author Organization [employer] Address [address] [place] [address] Care Team Providers Care Home Health Care Respiratory Therapist Name Role Phone Unavailable Primary Care Provider [...] Maintenance Insurance DENTAL - [place] PARTIAL (MEDICAID) "
--- NOTE | 2025-04-24 08:02 | MHC.PC.OV ---
Vital Signs 04/24/25 08:04 04/24/25 08:27 Height 5 ft 8 in Weight 267 lb BMI 40.6 BP 118/88 120/90 H Blood Pressure Location Lt brachial Position Sitting Respiration 16 Pulse 64 Pulse Source Pulse Oximeter Pulse Oximetry (%) 94 Oxygen Delivery Method Room Air Intake Visit Reasons: ANNUAL PE Production Maintenance Mechanic Required: No Accompanied by: Self / Same As Patient Allergies No Known Allergies (No Known Allergies*) Allergy (Verified 04/24/25 08:10) Medication List - Last Reconciled 04/24/25 by SHON Smith No Known Home Meds Tobacco use date assessed: 04/24/25 Dental Screening Dental Screen Date: 04/24/25 Did you have a dental visit in the last 12 months?: No Did you have a dental problem in the last 6 months where you did not have access to dental care?: No Was dental information given to patient?: Patient has dentist HPI ANNUAL PE HPI Details History of Present Illness The patient is a 44-year-old male presenting for a physical examination. He denies experiencing any chest pain, shortness of breath, abdominal pain, blood in stool, constipation, diarrhea, or urinary symptoms. He also denies any suicidal or homicidal ideation. The patient is noted to be obese and has recently acquired a gym membership to address this issue. 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 - Exercise: Recently joined a gym Review of Systems - Cardiovascular: Denies chest pain - Respiratory: Denies shortness of breath - Gastrointestinal: Denies abdominal pain, blood in stool, constipation, diarrhea - Genitourinary: Denies urinary symptoms - Psychiatric: Denies suicidal ideation, denies homicidal ideation Physical Exam General: Cooperative, healthy appearing, comfortable, no acute distress and well developed, obese Orientation: Patient oriented x3 Limitations: No limitations Head: Normal to inspection Ears: Hearing grossly normal bilaterally Nose: Normal external nose present Face and sinus: Normal facial exam Eyes: Appearance normal, both eyes and all related structures Neck: Normal visual inspection and Yes full ROM Respiratory: Normal respiratory effort and able to speak in complete sentences. Clear to auscultation bilaterally Cardiovascular: Regular rate and rhythm. Normal S1 and S2 GI: Normal to inspection. Soft to palpation and nontender : Testicles without masses/lesions and no hernias appreciated Skin: No rashes or lesions noted Neuro: Patient oriented x3 Extremities: Normal to inspection Results Plan The patient will undergo laboratory tests in the near future to further assess his health status. Discussion Notes I discussed with the patient the importance of regular physical activity and the benefits of his new gym membership in managing obesity. We also talked about the need for upcoming laboratory tests to monitor his health. Patient Instructions - Continue with the gym membership and engage in regular physical activity. - Follow up for laboratory tests as discussed. 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 1. Little interest or pleasure in doing things: not at all 2. Feeling down, depressed, or hopeless: not at all 3. Trouble falling or staying asleep, or sleeping too much: not at all 4. Feeling tired or having little energy: not at all 5. Poor appetite or overeating: not at all 6. Feeling bad about yourself - or that you are a failure or have let yourself or your family down: not at all 7. Trouble concentrating on things, such as reading the newspaper or watching television: not at all 8. Moving or speaking so slowly that other people could have noticed. Or the opposite - being so fidgety or restless that you have been moving around a lot more than usual: not at all 9. Thoughts that you would be better off or of hurting yourself in some way: not at all Total score: 0 Depression Screening Interpretation: Negative Depression Screening Done: Yes 40347 - PHQ-9 Billing: Yes Source: Developed by Drs. Robin Erickson, Farrah Quintana, Nilesh Carreno and colleagues, with an educational lissette from [email or web address]. Thrive Questionnaire Date Thrive assessed: 04/18/25 I am a: Patient What is your living situation today?: I have a steady place to live Within the past 12 months, did the food you bought not last and you didn't have the money to get more?: Never true Within the past 12 months, did you worry whether your food would run out before you got money to buy more?: Never true Do you have trouble paying for medicines?: No Do you have trouble getting transportation to medical appointments?: No Do you have trouble paying your heating and electricity bill?: No Do you have trouble taking care of your child, family member or friend?: No Do you have trouble with day-to-day activities such as bathing, preparing meals, shopping, managing finances, etc.?: No Are you currently unemployed and looking for a job?: No Are you interested in more education?: No Please select the resources that you would like help with: None Currently or been in a relationship where the following occur: No concerns reported THRIVE Score: 0 AUDIT C Alcohol Use Questionnaire (AUDIT-C) 1. How often do you have a drink containing alcohol?: Never 3. How often do you have six or more drinks on one occasion?: Never Total Score: 0 Score Reviewed/Action Taken: Yes NANCY-7 AMB Questionnaire NANCY-7 Date NANCY - 7 assessed: 04/24/25 Feeling nervous, anxious, or on edge: 0 = Not at all Not being able to stop or control worryin = Not at all Worrying too much about different things: 1 = Several days Trouble relaxin = Not at all Being so restless that it is hard to sit still: 0 = Not at all Becoming easily annoyed or irritable: 0 = Not at all Feeling afraid as if something awful might happen: 0 = Not at all Total NANCY-7 score (0-4 normal; 5-9 mild; 10-14 moderate; 15-21 severe): 1 Source: Developed by Drs. Robin Erickson, Frarah Quintana, Nilesh Carreno and colleagues, with an educational lissette from [email or web address]. NANCY-7 Assessment Billing NANCY-7 Assessment Tool: NANCY-7 Assessment 07405 Physical exam (Primary Care) Vital Signs: Last Vital Signs Pulse 64 04/24/25 08:04 Resp 16 04/24/25 08:04 BP 118/88 04/24/25 08:04 Pulse Ox 94 04/24/25 08:04 Oxygen Delivery Method Room Air 04/24/25 08:04 BMI result Body Mass Index 40.6 Tobacco/Smoking Status: Tobacco use Status Tobacco use date assessed 04/24/25 04/24/25 08:08 Patient Tobacco Use Status Never used Tobacco 04/24/25 08:08 e-Cigarette/Vaping Use Never Used 04/24/25 08:08 PHQ-9: PHQ-9 Score PHQ-9: Total score 0 04/24/25 08:14 Depression Screening Interpretation: Negative Thrive Assessment: Date of Thrive Assessment Date Thrive assessed 04/18/25 04/24/25 08:08 Currently or been in a relationship where the following occur: No concerns reported Coding Level of Care Code Est Pt Prev Care 40-64y(90918) Diagnoses Physical exam Z00. Additional Codes NANCY-7 Assessment Billing - NANCY-7 Assessment Tool: NANCY-7 Assessment 32839 ([id number]) PHQ-9 - 79400 - PHQ-9 Billing: Yes ([id number]) Assessment & Plan Assessment & Plan (1) Physical exam: Code(s): Z00.00 - Encounter for general adult medical examination without abnormal findings Category: Medical Plan . Orders: Orders Complete Blood Count Auto Diff Today Z00.00 - Encounter for general adult medical examination without abnormal findings TSH reflex Free T4 Today Z00.00 - Encounter for general adult medical examination without abnormal findings Lipid Panel Today Z00.00 - Encounter for general adult medical examination without abnormal findings AMB EKG-In Office Today Z00.00 - Encounter for general adult medical examination without abnormal findings Comprehensive [place]. Panel Fast Today Z00.00 - Encounter for general adult medical examination without abnormal findings UA CC w/rflx Micro + Cult Today Z00.00 - Encounter for general adult medical examination without abnormal findings
[2025-04-24 08:04] VITALS: BP 118/88; PULSE 64; RESP 16; O2SAT 94; BMI 40.6
[2025-04-24 08:27] VITALS: BP 120/90
== END 2025-04-24 08:49 | disposition home or self-care (01) ==
LOC: HO.HMCC 07:58
PROVIDERS: PCP Nurse Practitioner Family; Visit Provider Nurse Practitioner Family
DX: Z00.00 Encounter for general adult medical examination without abnormal findings (principal)

== ENCOUNTER 2025-04-24 07:58 | Outpatient (REF) | payer OTHER, SELFPAY ==
[2025-04-24 10:17] LABS: MANUAL DIFF FLAG NO
[2025-04-24 10:25] LABS: Appearance Urine Clear; Glucose Urine UA Negative (Negative); PH 6.0 (5.0-9.0); Specific Gravity - Urine 1.020 (1.005-1.025); UMIC TRIGGER UACC YES
[2025-04-24 10:32] LABS: Hematocrit 45.6 % (42.0-52.0); Hemoglobin 15.0 g/dl (14.0-18.0); Imm Gran Abs Auto 0.02 X10*3/uL (0.00-0.03); Imm Gran Pct Auto 0.4 % (0.0-0.4); Lymphocytes Absolute Auto 2.4 X10*3/uL (1.2-4.9); Mean Corpuscular HGB Conc 32.9 g/dl (31.0-36.0); Mean Corpuscular Hemoglobin 30.5 pg (27.0-33.0); Mean Corpuscular Volume 92.7 fL (80.0-98.0); NRBC Abs Auto 0.000 X10*3/uL (0.0-0.012); NRBC Pct Auto 0.0 /100WBC (0.0-0.2); Platelet Count 225 X10*3/uL (160-400); Red Blood Count 4.92 X10*6/uL (4.60-5.80); White Blood Count 5.5 X10*3/uL (4.8-10.8)
[2025-04-24 11:10] LABS: Alanine Aminotransferase 74 U/L (0-40); Albumin Level 4.5 g/dL (3.5-5.0); Alkaline Phosphatase 96 U/L (39-117); Anion Gap 11 (12-20); Aspartate Amino Transferase 41 U/L (5-37); Blood Urea Nitrogen 14 mg/dL (9-16); Calcium 9.2 mg/dL (8.4-10.2); Carbon Dioxide 27 mmol/L (22-29); Chloride 105 mmol/L (96-108); Cholesterol 168 mg/dL (<200); Estimated Glomerular Filt Rate > 60; HDL Cholesterol 34 mg/dL (>40); Potassium 4.4 mmol/L (3.3-5.1); Sodium 139 mmol/L (135-145); Total Protein 7.3 g/dL (6.5-8.0); Triglycerides 129 mg/dL (<150)
== END 2025-04-24 07:59 | disposition home or self-care (01) ==
LOC: HO.HMGCLDS 07:58
PROVIDERS: PCP Nurse Practitioner Family; Visit Provider Nurse Practitioner Family
DX: Z00.00 Encounter for general adult medical examination without abnormal findings (principal)
CPT/HCPCS: 36415; 80053; 80061; 81001; 84443; 85025; 96127; 99396

== ENCOUNTER 2025-04-27 10:40 | Outpatient (AMB) | payer OTHER, SELFPAY ==
--- NOTE | 2025-04-27 10:46 | MHC.OFFVIS ---
Intake Visit Reasons: 1y/UA Intake Note: Patient is present for 1Y/UA Urology Medication:NONE Antibiotic Allergy:NONE Blood Thinner:NONE Management Consultant Required: No Allergies No Known Allergies (No Known Allergies*) Allergy (Verified 04/27/25 11:10) Medication List - Last Reconciled 04/27/25 by SATISH Canseco No Known Home Meds HPI Comments Details: Vladislav is a very pleasant 44-year-old male patient of Dr. Kasper who was accompanied by his son at today's office visit. He has a past medical history of hepatic stenosis, renal cysts, and microscopic hematuria. He presents to the office today for follow-up of his persistent microscopic hematuria. In discussion with the patient today reports to be doing and feeling well. He reports since his last office visit here approximately 1 year ago he has had no urological issues or concerns. He does discuss having followed up with Nephrology as well as PCP and has gained weight over the last year and is attempting to lose weight. In office urinalysis results reviewed with the patient today 2+ microscopic hematuria which is less than previous noted microscopic hematuria. Previous workup has included a retroperitoneal ultrasound 03/23 noting bilateral kidneys with no hydronephrosis or renal calculi. Lower left pole renal cyst measuring approximately 0.9 cm. The bladder is well distended and normal. Bladder jets are demonstrated. Pre void bladder volume is approximately 230 mL. Postvoid volume is approximately 20 mL. Well-circumscribed hypoechoic area within the prostate with posterior shadowing likely represents a small cyst versusnecrotic nodule. Patient also underwent an office cystoscopy 04/[address] Turner that noted the bladder was clear however enlarged. They discussed the importance of timed/scheduled voiding. 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 We did discussed importance in doing so. He denies any previous history of nicotine dependence and or workplace chemical exposure. When asked he denies urinary urgency, urinary frequency, incontinence, nocturia, hematuria, dysuria, foul smelling urine, changes to urinary stream, flank pain, fever, and or chills. He is happy with his current voiding parameters. Urine cytology 03/22 & 03/23 Urine: Negative for high-grade urothelial carcinoma. He otherwise offers no other issues or concerns at this time. 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 Cognitive needs: No Hearing needs: No Vision needs: No Review of Systems Const All systems reviewed & are unremarkable except as noted in HPI and below Physical Exam Const General: cooperative, healthy appearing, comfortable, no acute distress, well developed, alert and awake Nutritional Appearance: overweight Orientation/consciousness: patient oriented x3 Limitations: no limitations HEENT Head: Yes normal to inspection, Yes normocephalic and Yes atraumatic Ears: hearing grossly normal bilaterally Eyes General: appearance normal, both eyes and all related structures Neck Neck: Yes normal visual inspection and Yes trachea midline Chest Chest palpation & inspection: normal inspection of the chest Resp Effort & Inspection: normal respiratory effort and able to speak in complete sentences Cardio Rate: regular rate GI Inspection: Yes normal to inspection General: Yes no CVA tenderness Male General Exam: Yes normal external exam Penis: normal penis Meatus: meatus normal Scrotum: scrotum normal and Varicocele present Testes: Testes normal Back/Spine/Pelvis Back: no CVA tenderness Skin General skin exam: no rashes or lesions noted Neuro General: patient oriented x3 Extrem General: Yes normal to inspection Psych Appearance: grossly normal and well kempt Mental Status: mental status grossly normal Speech and movement: Normal speech and movement present and Clear speech present Affect: normal affect Attitude: cooperative Thought process: Normal thought process present Thought content: Normal thought content present Insight: Fair insight present (Psych) Judgement: Fair judgement present (Psych) Results AMB Urinalysis, Automated UA Leukoctes 0 Larry/uL Last Edit by Courtney Ogden [facility] on 04/27/25 10:56 UA Nitrite Negative Last Edit by Courtney Ogden [facility] on 04/27/25 10:56 UA Urobilinogen 0.2 mg/dL Last Edit by Courtney Ogden [facility] on 04/27/25 10:56 UA Protein 0 mg/dL Last Edit by Courtney Ogden [facility] on 04/27/25 10:56 UA pH 7.0 Last Edit by Courtney Ogden [facility] on 04/27/25 10:56 UA Blood 25 Arturo/uL Last Edit by Courtney Ogden [facility] on 04/27/25 10:56 UA Specific [place] 1.015 Last Edit by Courtney Ogden [facility] on 04/27/25 10:56 UA Ketone Negative Last Edit by Courtney Ogden [facility] on 04/27/25 10:56 UA Bilirubin 0 mg/dL Last Edit by Courtney Ogden [facility] on 04/27/25 10:56 UA Glucose 0 mg/dL Last Edit by Courtney Ogden [facility] on 04/27/25 10:56 Results Reviewed Results Reviewed: Laboratory Last Values Urine pH (Auto) 7.0 04/27/25 10:56 Specific [place] (Auto) 1.015 04/27/25 10:56 Urine Protein (Auto) 0 mg/dL 04/27/25 10:56 Glucose (UA)(Auto) 0 mg/dL 04/27/25 10:56 Urine Ketones (Auto) Negative 04/27/25 10:56 Urine Blood (Auto) 25 Arturo/uL 04/27/25 10:56 Urine Nitrite (Auto) Negative 04/27/25 10:56 Urine Bilirubin (Auto) 0 mg/dL 04/27/25 10:56 Urine Urobilinogen (Auto) 0.2 mg/dL 04/27/25 10:56 Leukocyte Esterase (Auto) 0 Larry/uL 04/27/25 10:56 Assessment & Plan Assessment & Plan (1) Microhematuria: Code(s): R31.29 - Other microscopic hematuria Category: Medical Plan In office urinalysis results with the patient today; as noted above; will send for urine cytology. Will continue with surveillance monitoring. He currently denies any bothersome urinary issues or concerns. He reports be happy with current voiding parameters. We did discussed potential causes of microscopic hematuria as well as further interventions and risks and benefits of these interventions. All questions were answered. We did discussed importance of weight loss in relation to overall health and well-being Follow-up in 1 year; or sooner with any issues, concerns, and or questions. Orders: Orders AMB Urinalysis Automated Today Z13.9 - Encounter for screening, unspecified Urine Cytology Today R31.29 - Other microscopic hematuria Patient Instructions: The patient had an opportunity to ask questions regarding the treatment plan. All questions were answered. Physical exam, labs, and imaging were discussed and reviewed in detail. As well as risks, benefits, and discussion of treatment choices. No major barriers to understanding were identified. The patient expressed understanding and agreement with the above treatment plan. The patient was made aware they should contact our office by phone for worsening of their current condition, the appearance of new symptoms, or with any questions or concerns. Compliance is encouraged with any medications and follow up testing that is ordered. It is a privilege to be allowed the opportunity to participate in? your urological care.? Again, if you have any questions or concerns If you have any questions or concerns please do not hesitate to contact me. The office is [phone]. This note is constructed using voice recognition software. While every effort has been made to ensure accuracy back office medical assistant errors may have been included. Yours sincerely, SATISH Canseco Coding Level of Care Code Est Pt Level 3 (91551) Diagnoses Microhematuria R31.29
--- OUTSIDE RECORDS SUMMARY | 2025-04-27 12:06 | XMS_ITS | Clinical Summary ---
Author Organization [employer] Address [address] [place] [address] Care Team Providers Care Curriculum Supervisor Name Role Phone Unavailable Primary Care Provider [...]
--- OUTSIDE RECORDS SUMMARY | 2025-04-27 12:06 | XMS_ITS | Encounter Summary ---
Author Organization [employer] [facility] Address [address] [place] [address] Care Team Providers Care Terminal Operations Manager Name Role Phone Unavailable Primary Care Provider Unavailabl e Encounter Details Date Type Department Care Team (Latest Contact Info) Description 03/15/2021 Abstract [facility] CONVERSIONS Dental, Provider, DDS Social History Tobacco Use Types Packs/Day Years Used Date Smoking Tobacco: Never Assessed Sex and Gender Information Value Date Recorded Sex Assigned at Male 06/30/2022 10:16 AM EDT Legal Sex Male 10:16 AM EDT Gender Identity Male 06/30/2022 10:16 AM EDT Sexual Orientation Straight 06/30/2022 10 :16 AM EDT documented as of this encounter Plan of Treatment Not on file documented as of this encounter Visit Diagnoses Not on filedocumented in this encounter
--- OUTSIDE RECORDS SUMMARY | 2025-04-27 12:06 | XMS_ITS | Clinical Summary ---
Author Organization [facility] Address [address] [place] [address] Phone Care Team Providers Care Client Support Administrator Name Role Phone Jc Kasper NP Primary Care Provider [phone] Allergies No known active allergies Medications No [...] PCV) 2000 Influenza Vaccine (#1) 2025 Insurance [facility] Medicaid Care Teams Client Support Administrator Relationship Specialty Start Date End Date Jc Kasper NP 1960 [place] [address] PCP - General 09/10/20
--- OUTSIDE RECORDS SUMMARY | 2025-04-27 12:06 | XMS_ITS | Encounter Summary ---
Author Organization [facility] [facility] Address [address] [place] [address] Care Team Providers Care Technical Translator Name Role Phone Unavailable Primary Care Provider Unavailabl e Encounter Details Date Type Department Care Team (Latest Contact Info) Description 04/03/2022 Abstract [facility] CONVERSIONS Dental, Provider, DDS Social History Tobacco [...]
--- OUTSIDE RECORDS SUMMARY | 2025-04-27 12:06 | XMS_ITS | Encounter Summary ---
Author Organization [facility] Address [address] [place] [id number] Care Team Providers Care Dental Chair Assembler Name Role Phone Unavailable Primary Care Provider Unavailabl e Encounter Details Date Type Department Care Team (Latest Contact Info) Description 07/18/2019 Abstract [facility] CONVERSIONS Dental, Provider, DDS Social History [...]
== END 2025-04-27 11:12 | disposition home or self-care (01) ==
LOC: HO.HUSH 10:41
PROVIDERS: PCP Nurse Practitioner Family; Visit Provider Nurse Practitioner Family
DX: Z13.9 Encounter for screening, unspecified (principal); R31.29 Other microscopic hematuria
CPT/HCPCS: 99213

== ENCOUNTER 2025-04-27 10:40 | Outpatient (REF) | payer OTHER, SELFPAY | END 2025-04-27 10:41 | disposition home or self-care (01) | LOC: HO.LAB 10:40 | PROVIDERS: PCP Nurse Practitioner Family; Visit Provider Nurse Practitioner Family | DX: R31.29 Other microscopic hematuria (principal); Z13.89 Encounter for screening for other disorder | CPT/HCPCS: 81003; 88112; 99212 ==

== ENCOUNTER 2025-06-06 12:55 | Outpatient (REF) | payer OTHER, SELFPAY ==
--- NOTE | ~2025-06-06 | US_ITS ---
EXAMINATION: US RETROPERITONEAL LIMITED (RENAL ONLY) CLINICAL INFORMATION: Cyst of kidney, acquired. COMPARISON: 03/21/2024 TECHNIQUE: Real-time imaging of the kidneys. FINDINGS: RIGHT KIDNEY: 12.5 x 5.5 x 6.1 cm (SAG x AP x TRV). The kidney is normal in size, contour, and echogenicity. Renal cortical thickness is normal. No calculi or focal parenchymal lesions. No hydronephrosis. LEFT KIDNEY: 11.3 x 6.3 x 6.7 cm (SAG x AP x TRV). The kidney is normal in size, contour, and echogenicity. Renal cortical thickness is normal. No calculi or focal parenchymal lesions. No hydronephrosis. Previously seen lower pole cyst is not visualized on today's examination, and appears to have resolved. US/US renal BI IMPRESSION: Normal renal ultrasound. Electronically signed by: Pierre Dunn MD 06/06/2025 01:35 PM EDT
--- OUTSIDE RECORDS SUMMARY | 2025-06-06 15:48 | XMS_ITS | Encounter Summary ---
Author Organization [facility] Address [address] Floor [place] [id number] Care Team Providers Care Sales And Merchandising Representative Name Role Phone Unavailable Primary Care Provider Unavailabl e Encounter Details Date Type Department Care Team (Latest Contact Info) Description 07/18/2019 Abstract [facility] CONVERSIONS Dental, Provider, DDS Social History Tobacco [...]
--- OUTSIDE RECORDS SUMMARY | 2025-06-06 15:48 | XMS_ITS | Encounter Summary ---
Author Organization [employer] [facility] Address [address] [place] [address] Care Team Providers Care Carpenter Ship Name Role Phone Unavailable Primary Care Provider [...]
--- OUTSIDE RECORDS SUMMARY | 2025-06-06 15:48 | XMS_ITS | Encounter Summary ---
Author Organization [facility] Address [address] [place] [address] Care Team Providers Care Remanufacturing Technician Name Role Phone Unavailable Primary Care Provider Unavailabl e Encounter Details Date Type Department Care Team (Latest Contact Info) Description 03/15/2021 Abstract [facility] CONVERSIONS Dental, Provider, DDS Social History Tobacco [...]
--- OUTSIDE RECORDS SUMMARY | 2025-06-06 15:48 | XMS_ITS | Clinical Summary ---
Author Organization [facility] [facility] Address [address] [place] [address] Care Team Providers Care Pediatric Immunologist Name Role Phone Unavailable Primary Care Provider [...] 04/21/20 23, 08/18/2022 COVID-19 Vaccine (4 - 2024-2 6 season) 2025 10/10/2021, 11/25/2020, 11/04/2020 Influenza Vaccine (#1) 2025 [...]
== END 2025-06-06 12:56 | disposition home or self-care (01) ==
LOC: HO.HMGCX 12:55
PROVIDERS: PCP Nurse Practitioner Family; Visit Provider Internal Medicine Nephrology
DX: N28.1 Cyst of kidney, acquired (principal)
CPT/HCPCS: 76775

== ENCOUNTER → 2025-06-06 12:57 | Outpatient (BNV) | payer OTHER, SELFPAY | PROVIDERS: PCP Nurse Practitioner Family; Visit Provider Radiology Diagnostic Radiology | DX: N28.1 Cyst of kidney, acquired (principal) | CPT/HCPCS: 76775 ==